=== PATIENT | male | born 1940 | race Caucasian/White ===

== ENCOUNTER → 2016-04-04 | Outpatient (CLI) | payer BC ==
[~2016-04-04] MED LIST: AMB10 PO; ASCO10003 PO; ASPI81TA28 PO; BUPRTAB51 PO; CHOL100010 PO; CLOP1TAB15 PO; FERR325T PO; FINA5TAB PO; FLUD0.1T10 PO; GABA-113 PO; INSPMPNVLG; MULT-506 PO; NITR0.4S UT; NXM/40 PO; RANI300T2 PO; SERT-234 PO; SILO4CAP PO; ZOLP5TAB6 PO
[2016-04-04 14:28] LABS: ALT/SGPT 19 U/L (12-78); BLOOD UREA NITROGEN 15 mg/dl (7-18); BUN/CREATININE RATIO 10.1 (10-20); CALCIUM 9.3 mg/dl (8.5-10.1); CARBON DIOXIDE 29 mmol/L (21-32); CHLORIDE 104 mmol/L (98-107); CHOLESTEROL 207 mg/dl (0-200); GLUCOSE 259 mg/dl (70-99); POTASSIUM 4.4 mmol/L (3.5-5.1); SODIUM 141 mmol/L (136-145)
[2016-04-04 14:31] LABS: ALB/GLOB RATIO 0.9 (0.9-2); ALKALINE PHOSPHATASE 112 U/L (45-117); AST/SGOT 11 U/L (15-37); CHOLESTEROL/HDL RATIO 4.8; HDL CHOLESTEROL 43 mg/dl; LDL CHOLESTEROL CALCULATED 142 mg/dl; TRIGLYCERIDES 109 mg/dl (0-150); VERY LOW DENSITY LIPOPROT CALC 22 mg/dl
[2016-04-05 06:17] LABS: ESTIMATED AVERAGE GLUCOSE 186 mg/dl; HA1C FLAG Normal (Normal)
== END | disposition home or self-care (01) ==
LOC: C.LAB1850 12:21
PROVIDERS: ATTEND Internal Medicine Endocrinology, Diabetes & Metabolism
DX: E78.00 Pure hypercholesterolemia, unspecified (principal); E11.65 Type 2 diabetes mellitus with hyperglycemia

== ENCOUNTER → 2016-06-25 | Outpatient (CLI) | payer BC ==
[~2016-06-25] MED LIST changes: +CEPH500C PO; +FERR1TAB13 PO; +FERR1TAB62 PO; -FERR325T PO; +GLGKIT SC; +PRMT25 PO; +SULF800T23 PO; +VTMD1000 PO; +ZNTT/150 PO; +ZOLP5TAB PO; +ZOLP6.252 PO
[2016-06-25 13:28] LABS: CHOLESTEROL/HDL RATIO 3.6; THYROID STIMULATING HORMONE 2.11 uIu/ml (0.300-4.500)
[2016-06-25 14:01] LABS: ESTIMATED AVERAGE GLUCOSE 192 mg/dl; HA1C FLAG Normal (Normal)
== END | disposition home or self-care (01) ==
LOC: C.LAB1850 10:13
PROVIDERS: ATTEND Internal Medicine Geriatric Medicine
DX: E11.22 Type 2 diabetes mellitus with diabetic chronic kidney disease (principal); E78.5 Hyperlipidemia, unspecified; N18.3 Chronic kidney disease, stage 3 (moderate)

== ENCOUNTER → 2016-07-31 | Outpatient (CLI) | payer BC ==
[2016-07-31 12:10] LABS: HEMATOCRIT 38.7 % (42-52); MEAN CELL VOLUME 95.3 fL (80-100); MEAN CORPUSCULAR HEMOGLOBIN 31.8 pg (25-34); MEAN CORPUSCULAR HGB CONC 33.3 g/dl (32-36); MEAN PLATELET VOLUME 10.3 fL (7.4-10.4); PLATELET COUNT 261 K/uL (130-400); RED BLOOD COUNT 4.06 M/uL (4.7-6.1); WHITE BLOOD COUNT 9.22 K/uL (4.8-10.8)
[2016-07-31 12:16] LABS: URINE APPEARANCE CLEAR (CLEAR); URINE BILIRUBIN NEG (NEG); URINE COLOR YELLOW; URINE NITRITE NEG (NEG); URINE SPECIFIC GRAVITY 1.018 (1.000-1.030); UROBILINOGEN NEG (NEG)
[2016-07-31 12:19] LABS: MANUAL MICROSCOPIC REQUIRED? NO; REVIEW REQ? NO
[2016-07-31 12:44] LABS: BLOOD UREA NITROGEN 12 mg/dl (7-18); CALCIUM 9.1 mg/dl (8.5-10.1); CARBON DIOXIDE 30 mmol/L (21-32); CHLORIDE 104 mmol/L (98-107); GLUCOSE 235 mg/dl (70-99); PHOSPHORUS 3.3 mg/dl (2.5-4.9); POTASSIUM 4.9 mmol/L (3.5-5.1); SODIUM 140 mmol/L (136-145)
[2016-07-31 12:59] LABS: URINE PROTIEN/CREAT RATIO 0.2 (0-0.2); URINE TOTAL PROTEIN 21.6 mg/dl (0-11.9)
== END | disposition home or self-care (01) ==
LOC: C.LAB1850 11:14
PROVIDERS: ATTEND Internal Medicine Nephrology
DX: N18.3 Chronic kidney disease, stage 3 (moderate) (principal); D64.9 Anemia, unspecified; N20.0 Calculus of kidney; E55.9 Vitamin D deficiency, unspecified

== ENCOUNTER 2016-12-11 10:13 | Observation (INO) | payer BC ==
[~2016-12-11] VITALS: Ht 180.3 cm; Wt 89.0 kg
[~2016-12-11 10:13] MED LIST changes: -CEPH500C PO; -FERR1TAB13 PO; -FERR1TAB62 PO; +FERR325T PO; -GLGKIT SC; -PRMT25 PO; -SULF800T23 PO; -VTMD1000 PO; -ZNTT/150 PO; -ZOLP5TAB PO; -ZOLP6.252 PO
[2016-12-11] MEDS ORDERED: GLGKIT (11:37)
[2016-12-11] MEDS ORDERED: SODIUM CHLORIDE 0.9% 1000ML 1,000 ML IV STA (11:38)
[2016-12-11 11:53] LABS: BASO % 0.2 %; BASO ABS # 0.03 K/uL (0-0.2); COMPLETE YES; EOS % 1.4 %; HEMATOCRIT 33.9 % (42-52); IG% 0.3 %; LYMPH % 7.9 %; LYMPH ABS # 1.19 K/uL (1.2-3.4); MEAN CELL VOLUME 93.6 fL (80-100); MEAN CORPUSCULAR HEMOGLOBIN 32.6 pg (25-34); MEAN CORPUSCULAR HGB CONC 34.8 g/dl (32-36); MEAN PLATELET VOLUME 10.1 fL (7.4-10.4); MONO % 6.5 %; NEUT % 83.7 %; PLATELET COUNT 244 K/uL (130-400); RED BLOOD COUNT 3.62 M/uL (4.7-6.1); WHITE BLOOD COUNT 15.09 K/uL (4.8-10.8)
--- NOTE | 2016-12-11 12:06 | DIAGNOSTIC IMAGING REPORT ---
CHEST ONE VIEW PORTABLE CLINICAL HISTORY: 76 years-old Male presenting with EVALUATE ALTERED MENTAL STATUS/WEAKNESS. TECHNIQUE: Portable upright AP view of the chest was obtained. COMPARISON: 07/11/2014. FINDINGS: Atherosclerosis of the aortic arch. Cardiac silhouette top normal in size. Vague bibasilar prominent interstitial lung markings. No new focal infiltrate. Biapical scarring again noted, left greater than right. No large effusion or pneumothorax. Degenerative changes of the thoracic spine. Upper abdomen normal. IMPRESSION: 1. Suggestion of mild cardiomegaly. No michael pulmonary edema. No focal infiltrate. Electronically signed by: Jaskaran Silva M.D. 12/11/2016 12:05 PM Dictated Date/Time: 12/11/2016 12:04 PM
[2016-12-11 12:28] LABS: ALT/SGPT 19 U/L (12-78); BLOOD UREA NITROGEN 21 mg/dl (7-18); BUN/CREATININE RATIO 13.1 (10-20); CALCIUM 8.8 mg/dl (8.5-10.1); CARBON DIOXIDE 25 mmol/L (21-32); CHLORIDE 105 mmol/L (98-107); GLUCOSE 383 mg/dl (70-99); MAGNESIUM 2.3 mg/dl (1.8-2.4); SODIUM 138 mmol/L (136-145)
[2016-12-11 12:31] LABS: ALKALINE PHOSPHATASE 106 U/L (45-117); AST/SGOT 14 U/L (15-37); THYROID STIMULATING HORMONE 0.639 uIu/ml (0.300-4.500)
[2016-12-11 12:50] LABS: BETA-HYDROXYBUTYRATE 1.25 mg/dL (0.2-2.81)
[2016-12-11 12:50] LABS: PROTHROMBIN TIME (PATIENT) 10.8 SECONDS (9.0-12.0)
[2016-12-11 13:57] LABS: MANUAL MICROSCOPIC REQUIRED? NO; URINE APPEARANCE CLEAR (CLEAR); URINE BILIRUBIN NEG (NEG); URINE COLOR YELLOW; URINE NITRITE NEG (NEG); URINE PH 5.5 (4.5-7.5); UROBILINOGEN NEG (NEG)
[2016-12-11 13:58] LABS: REVIEW REQ? NO
--- NOTE | 2016-12-11 14:01 | EMERGENCY ROOM VISIT NOTE ---
History Report prepared by Raymundo: Maye Sesay Under the Supervision of: Dr. Finesse Gonzalez D.O. First contact with patient: 11:00 Chief Complaint: WEAKNESS Stated Complaint: EXTREMELY TIRED History of Present Illness The patient is a 76 year old male who presents to the Emergency Room with complaints of persistent weakness over the past several weeks, that worsened over the past several days. The patient reports that he has had a decrease in energy, noting that he has to take frequent naps throughout the day. He reports a history of diabetes. The patient denies any fever, chest pain, or shortness of breath. Source of History: patient Onset: past several days Position: other (global) Quality: other (weakness) Timing: worsening, other (persistent) Associated Symptoms: No fevers, No chest pain, No SOB Review of Systems See HPI for pertinent positives & negatives. A total of 10 systems reviewed and were otherwise negative. Past Medical & Surgical Medical Problems: (1) Depression (2) Diab Edilia Wo Compl, Type Ii Or Unspec Type, Not Uncntrld (3) Esophageal Reflux (4) GERD (gastroesophageal reflux disease) (5) Heart disease (6) Hyperlipemia (7) Hyperlipidemia (8) Hypertension Nos (9) Insomnia (10) Lens Replacement Nec (11) Neuropathy (12) Transient ischemic attack (TIA) Surgical Problems: (1) History of heart artery stent Family History Diabetes mellitus Social History Smoking Status: Never Smoker Drug Use: none Marital Status: Housing Status: lives with family Occupation Status: employed Current/Historical Medications Scheduled Ascorbic Acid (Vitamin C), 1,000 MG PO HS Aspirin (Aspirin Ec), 81 MG PO HS Bupropion (Wellbutrin-Xl), 300 MG PO QAM Cholecalciferol (Vitamin D), 2,000 INTER.UNIT PO QAM Clopidogrel (Plavix), 75 MG PO QAM Esomeprazole Magnesium (Nexium), 40 MG PO QAM Ferrous Sulfate (Ferrous Sulfate), 1 TAB PO QAM Finasteride (Proscar), 5 MG PO HS Fludrocortisone Acetate (Florinef), 0.2 MG PO QAM Gabapentin (Neurontin), 300 MG PO BID Insulin Aspart (novoLOG INSULIN PUMP ), 1 EA N/A UD Multivitamin (Multivitamin), 1 TAB PO QAM Nitroglycerin (Nitrostat), 0.4 MG UT PRN Ranitidine (Zantac), 300 MG PO HS Sertraline (Zoloft), 200 MG PO QAM Silodosin (Rapaflo), 4 MG PO QAM Zolpidem Tartrate (Ambien *), 6.25 MG PO HS Scheduled PRN Zolpidem Tartrate (Zolpidem Tartrate), 1 TAB PO HS PRN for Sleep Miscellaneous Medications Glucagon (Glucagon Emergency Kit), 1 Allergies Coded Allergies: Horse Serum Proteins (Verified Allergy, Unknown, HAPPENED A CHILD, 01/17) Metoprolol (Verified Adverse Reaction, Intermediate, SEVERE HEADACHE, 01/17) Physical Exam Vital Signs Date Time Temp Pulse Resp B/P (MAP) Pulse Ox O2 Delivery O2 Flow Rate FiO2 12/11/16 13:41 68 17 139/67 95 12/11/16 13:13 66 12/11/16 12:48 68 12 95 12/11/16 11:48 70 19 96 12/11/16 11:43 72 12 96 12/11/16 11:13 75 13 96 12/11/16 11:05 96 Room Air 12/11/16 10:52 75 12/11/16 10:51 142/59 12/11/16 10:17 36.7 84 18 125/54 96 Room Air Physical Exam CONSTITUTIONAL/VITAL SIGNS: Reviewed / noted above. GENERAL: Non-toxic in appearance. INTEGUMENTARY: Warm, dry, and [place]. HEAD: Normocephalic. EYES: without scleral icterus or trauma. ENT/OROPHARYNX: dry mucous membranes. LYMPHADENOPATHY/NECK: Is supple without lymphadenopathy or meningismus. RESPIRATORY: Lungs clear and equal. CARDIOVASCULAR: Regular rate and rhythm. GI/ABDOMEN: Soft and nontender. No organomegaly or pulsatile mass. No rebound or guarding. Normal bowel sounds. EXTREMITIES: Warm and well perfused. BACK: No CVA tenderness. NEUROLOGICAL: Intact without focal deficits. PSYCHIATRIC: normal affect. MUSCULOSKELETAL: Normally developed with good muscle tone. Medical Decision & Procedures ER Provider Diagnostic Interpretation: X ray results and stated below per my interpretation and radiology interpretation. CHEST ONE VIEW PORTABLE CLINICAL HISTORY: 76 years-old Male presenting with EVALUATE ALTERED MENTAL STATUS/WEAKNESS. TECHNIQUE: Portable upright AP view of the chest was obtained. COMPARISON: 07/11/2014. FINDINGS: Atherosclerosis of the aortic arch. Cardiac silhouette top normal in size. Vague bibasilar prominent interstitial lung markings. No new focal infiltrate. Biapical scarring again noted, left greater than right. No large effusion or pneumothorax. Degenerative changes of the thoracic spine. Upper abdomen normal. IMPRESSION: 1. Suggestion of mild cardiomegaly. No michael pulmonary edema. No focal infiltrate. Electronically signed by: Jaskaran Silva M.D. 12/11/2016 12:05 PM Dictated Date/Time: 12/11/2016 12:04 PM Laboratory Results 12/11/16 11:00 Red Blood Count 3.62, Mean Corpuscular Volume 93.6, Mean Corpuscular Hemoglobin 32.6, Mean Corpuscular Hemoglobin Concent 34.8, Mean Platelet Volume 10.1, Neutrophils (%) (Auto) 83.7, Lymphocytes (%) (Auto) 7.9, Monocytes (%) (Auto) 6.5, Eosinophils (%) (Auto) 1.4, Basophils (%) (Auto) 0.2, Neutrophils # (Auto) 12.63, Lymphocytes # (Auto) 1.19, Monocytes # (Auto) 0.98, Eosinophils # (Auto) 0.21, Basophils # (Auto) 0.03 12/11/16 11:00 Test 12/11/16 11:00 12/11/16 12:27 12/11/16 13:39 White Blood Count 15.09 K/uL (4.8-10.8) Red Blood Count 3.62 M/uL (4.7-6.1) Hemoglobin 11.8 g/dL (14.0-18.0) Hematocrit 33.9 % (42-52) Mean Corpuscular Volume 93.6 fL (80-100) Mean Corpuscular Hemoglobin 32.6 pg (25-34) Mean Corpuscular Hemoglobin Concent 34.8 g/dl (32-36) Platelet Count 244 K/uL (130-400) Mean Platelet Volume 10.1 fL (7.4-10.4) Neutrophils (%) (Auto) 83.7 % Lymphocytes (%) (Auto) 7.9 % Monocytes (%) (Auto) 6.5 % Eosinophils (%) (Auto) 1.4 % Basophils (%) (Auto) 0.2 % Neutrophils # (Auto) 12.63 K/uL (1.4-6.5) Lymphocytes # (Auto) 1.19 K/uL (1.2-3.4) Monocytes # (Auto) 0.98 K/uL (0.11-0.59) Eosinophils # (Auto) 0.21 K/uL (0-0.5) Basophils # (Auto) 0.03 K/uL (0-0.2) RDW Standard Deviation 44.9 fL (36.4-46.3) RDW Coefficient of Variation 13.0 % (11.5-14.5) Immature Granulocyte % (Auto) 0.3 % Immature Granulocyte # (Auto) 0.05 K/uL (0.00-0.02) Anion Gap 7.0 mmol/L (3-11) Est Creatinine Clear Calc Drug Dose 41.2 ml/min Estimated GFR () 47.5 Estimated GFR (Non- 40.9 BUN/Creatinine Ratio 13.1 (10-20) Calcium Level 8.8 mg/dl (8.5-10.1) Magnesium Level 2.3 mg/dl (1.8-2.4) Total Bilirubin 0.4 mg/dl (0.2-1) Direct Bilirubin 0.1 mg/dl (0-0.2) Aspartate Amino Transf (AST/SGOT) 14 U/L (15-37) Alanine Aminotransferase (ALT/SGPT) 19 U/L (12-78) Alkaline Phosphatase 106 U/L (45-117) Total Creatine Kinase 54 U/L (39-308) Creatine Kinase MB 1.1 ng/ml (0.5-3.6) Creatine Kinase MB Ratio 2.0 (0-3.0) Troponin I < 0.015 ng/ml (0-0.045) Total Protein 6.7 gm/dl (6.4-8.2) Albumin 3.2 gm/dl (3.4-5.0) Beta-Hydroxybutyric Acid 1.25 mg/dL (0.2-2.81) Thyroid Stimulating Hormone (TSH) 0.639 uIu/ml (0.300-4.500) Prothrombin Time 10.8 SECONDS (9.0-12.0) Prothromb Time International Ratio 1.0 (0.9-1.1) Activated Partial Thromboplast Time 27.0 SECONDS (21.0-31.0) Partial Thromboplastin Ratio 1.0 Urine Color YELLOW Urine Appearance CLEAR (CLEAR) Urine pH 5.5 (4.5-7.5) Urine Specific [place] 1.020 (1.000-1.030) Urine Protein NEG (NEG) Urine Glucose (UA) 3+ (NEG) Urine Ketones NEG (NEG) Urine Occult Blood NEG (NEG) Urine Nitrite NEG (NEG) Urine Bilirubin NEG (NEG) Urine Urobilinogen NEG (NEG) Urine Leukocyte Esterase NEG (NEG) Laboratory results as stated above per my review. Medications Administered Medications (Trade) Dose Ordered Sig/Henrry Route Start Time Stop Time Status Last Admin Dose Admin Sodium Chloride 1,000 ml @ 250 mls/hr Q4H STAT IV 12/11/16 11:38 12/11/16 15:37 12/11/16 12:05 250 MLS/HR ECG Indication: weakness Rate (beats per minute): 74 Rhythm: normal sinus Findings: no acute ischemic change, no ectopy ED Course 1102: Previous medical records were reviewed. The patient was evaluated in room B9. A complete history and physical examination was performed by the medical student. 1138: Previous medical records were reviewed. The patient was evaluated in room B9. A complete history and physical examination was performed. Ordered Sodium Chloride 1000 ml @ 250 mls/hr IV. 1346: I discussed the patients case with [facility] [place] [facility] He is going to evaluate the patient for further treatment. 1351: I reevaluated the patient and he is resting comfortably. I discussed the exam findings with him and I discussed the treatment plan. He verbalized complete understanding and agreement. He is ready to go home. Medical Decision Differentials include: Acute coronary syndrome, myocardial infarction, CVA, TIA , anemia, infection, pneumonia, UTI, pyelonephritis, poor nutrition, dehydration , electrolyte disturbance, and hypoglycemia. This is a 76-year-old male who presents to the ED with a chief complaint of generalized weakness. He has been weak for the past several weeks but his symptoms worsened over the past few days according to the . He's been taking frequent naps. He becomes short of breath with exertion and when doing activities like gardening outside, the states that he will lie on the ground after doing minimal exertion and seems to be breathing heavily. The patient denies having any chest pains, headaches, nausea or vomiting. He has been eating and drinking okay. The patient's EKG shows a normal sinus rhythm. White blood cell count was 15,000. Hemoglobin is 11.8. Chest x-ray was negative for acute disease. BUN is 21 and creatinine is 1.6. Glucose 383. Troponin was negative, TSH was normal, urine did not show obvious infection. The patient did use his own insulin pump to cover his elevated glucose. Because of his Sinemet worsening of symptoms with regards to severe weakness and dyspnea with exertion, I spoke with the hospitalist who will see the patient for further inpatient evaluation and care. Medication Reconcilliation Current Medication List: was personally reviewed by me Consults Time Called: 1345 Consulting Physician: OLY Teran Returned Call: 134 I discussed the patients case with OLY Teran. He is going to evaluate the patient for further treatment. Impression Primary Impression: Dyspnea on exertion Additional Impressions: Weakness Leukocytosis Hyperglycemia Scribe Attestation The scribe's documentation has been prepared under my direction and personally reviewed by me in its entirety. I confirm that the note above accurately reflects all work, treatment, procedures, and medical decision making performed by me. Departure Information Dispostion Being Evaluated By Hospitalist Referrals Michael Dorantes M.D. (PCP) Problem Qualifiers
[2016-12-11 14:16] LABS: ZZUR CULT IF INDIC CLEAN CATCH NO
[2016-12-11] MEDS ORDERED: DEXTROSE 50% 50 ML SYR IV PRN (14:45)
[2016-12-11] MEDS ORDERED: GLUCOSE 10 TABS/TUBE PO PRN (14:45)
[2016-12-11] MEDS ORDERED: ONDANSETRON INJ 2 MG/ML 2 ML VIAL IV PRN (14:45)
[2016-12-11] MEDS ORDERED: NovoLOG INSULIN PUMP SCH (14:45)
[2016-12-11] MEDS ORDERED: GLUCOSE 40% GEL 15 GM TUBE PO PRN (14:45)
[2016-12-11] MEDS ORDERED: NITROGLYCERIN 0.4 MG SL PER TAB CHARGE SL PRN (14:45)
[2016-12-11] MEDS ORDERED: GLUCAGON FOR INJ 1 MG VIAL SQ PRN (14:45)
[2016-12-11] MEDS ORDERED: NITROGLYCERIN 0.4 MG SL PER TAB CHARGE UT SCH (14:45)
[2016-12-11] MEDS ORDERED: ACETAMINOPHEN 325 MG TAB PO PRN (14:45)
--- NOTE | 2016-12-11 15:06 | History and Physical ---
History & Physical Date & Time of Service: Dec 11, 2016 at 14:53 Chief Complaint: Extremely Tired Primary Care Physician: Michael Dorantes M.D. History of Present Illness Source: patient, hospital records The patient is a 76-year-old male who presents to the emergency department with persistent generalized weakness over the past several weeks with worsening over the past few days. His reports that he's been taking frequent naps throughout the day, and becomes short of breath with little activity. Past Medical/Surgical History Medical Problems: (1) Depression Status: Chronic (2) Diab Edilia Wo Compl, Type Ii Or Unspec Type, Not Uncntrld Status: Chronic (3) Esophageal Reflux Status: Chronic (4) GERD (gastroesophageal reflux disease) Status: Chronic (5) Heart disease Status: Chronic (6) Hyperlipemia Status: Chronic (7) Hyperlipidemia Status: Chronic (8) Hypertension Nos Status: Chronic (9) Insomnia Status: Chronic (10) Lens Replacement Nec Status: Resolved (11) Neuropathy Status: Chronic (12) Transient ischemic attack (TIA) Status: Resolved Surgical Problems: (1) History of heart artery stent Status: Chronic Family History Diabetes mellitus Social History Smoking Status: Never Smoker Smokeless Tobacco Use: No Alcohol Use: none Drug Use: none Marital Status: Housing status: lives with family Occupational Status: employed Immunizations History of Influenza Vaccine: Yes Influenza Vaccine Date: Dec 15, 2012 History of Tetanus Vaccine?: Yes History of Pneumococcal: Yes Pneumococcal Date: Nov 20, 2011 History of Hepatitis B Vaccine: No Multi-Drug Resistant Organisms History of MDRO: No Allergies Coded Allergies: Horse Serum Proteins (Verified Allergy, Unknown, HAPPENED A CHILD, 01/17) Metoprolol (Verified Adverse Reaction, Intermediate, SEVERE HEADACHE, 01/17) Home Medications Scheduled Ascorbic Acid (Vitamin C), 1,000 MG PO HS Aspirin (Aspirin Ec), 81 MG PO HS Bupropion (Wellbutrin-Xl), 300 MG PO QAM Cholecalciferol (Vitamin D), 2,000 INTER.UNIT PO QAM Clopidogrel (Plavix), 75 MG PO QAM Esomeprazole Magnesium (Nexium), 40 MG PO QAM Ferrous Sulfate (Ferrous Sulfate), 1 TAB PO QAM Finasteride (Proscar), 5 MG PO HS Fludrocortisone Acetate (Florinef), 0.2 MG PO QAM Gabapentin (Neurontin), 300 MG PO BID Insulin Aspart (novoLOG INSULIN PUMP ), 1 EA N/A UD Multivitamin (Multivitamin), 1 TAB PO QAM Nitroglycerin (Nitrostat), 0.4 MG UT PRN Ranitidine (Zantac), 300 MG PO HS Sertraline (Zoloft), 200 MG PO QAM Silodosin (Rapaflo), 4 MG PO QAM Zolpidem Tartrate (Ambien *), 6.25 MG PO HS Scheduled PRN Zolpidem Tartrate (Zolpidem Tartrate), 1 TAB PO HS PRN for Sleep Miscellaneous Medications Glucagon (Glucagon Emergency Kit), 1 Review of Systems The patient denies chest pain, palpitations, cough, lower extremity swelling, vision change, hearing change, sore throat, fevers, chills, sweats, weight change, nausea, vomiting, diarrhea or constipation, abdominal pain, pelvic pain, blood in urine or stool, dysuria, urinary frequency or urgency, headache, memory loss, rash, abnormal bruising or bleeding, imbalance, focal weakness, numbness or tingling in arms or legs, generalized arthralgias or myalgias, back or neck pain, or night sweats. The review of systems is otherwise negative other than for that already noted above, and at least 10 systems have been reviewed. Physical Exam Vital Signs Date Time Temp Pulse Resp B/P (MAP) Pulse Ox O2 Delivery O2 Flow Rate FiO2 12/11/16 13:41 68 17 139/67 95 12/11/16 13:13 66 12/11/16 12:48 68 12 95 12/11/16 11:48 70 19 96 12/11/16 11:43 72 12 96 12/11/16 11:13 75 13 96 12/11/16 11:05 96 Room Air 12/11/16 10:52 75 12/11/16 10:51 142/59 12/11/16 10: 36.7 84 18 125/54 96 Room Air The patient is awake, well-developed and adequately nourished, alert and oriented 3, normocephalic and atraumatic, lying in bed and in no acute distress. HEENT--PERRL, EOMI, mucous membranes and oropharynx dry. Neck--supple, no JVD or bruits, thyroid normal, trachea midline, no adenopathy. Heart--normal S1 and S2, no extra beats, no murmurs, rubs or gallops. Lungs--clear bilaterally with good air movement, no respiratory distress, no accessory muscle use. Abdomen--normal bowel sounds and soft, nontender and nondistended, no hernias or masses, no organomegaly. Extremities--no cyanosis, clubbing or edema. There are good distal pulses b/l. Dermatologic--normal skin turgor, normal color, warm and dry, no abnormal lymph nodes, no rash. Neurologic--cranial nerves II through XII grossly intact, motor and sensory examination normal. Rheumatologic--normal range of motion, nontender, muscles and joints. Psychiatric--normal affect. Diagnostics Laboratory Results Results Past 24 Hours Test 12/11/16 11:00 12/11/16 11:07 12/11/16 12:27 12/11/16 13:39 Range/Units White Blood Count 15.09 4.8-10.8 K/uL Red Blood Count 3.62 4.7-6.1 M/uL Hemoglobin 11.8 14.0-18.0 g/dL Hematocrit 33.9 42-52 % Mean Corpuscular Volume 93.6 80-100 fL Mean Corpuscular Hemoglobin 32.6 25-34 pg Mean Corpuscular Hemoglobin Concent 34.8 32-36 g/dl Platelet Count 244 130-400 K/uL Mean Platelet Volume 10.1 7.4-10.4 fL Neutrophils (%) (Auto) 83.7 % Lymphocytes (%) (Auto) 7.9 % Monocytes (%) (Auto) 6.5 % Eosinophils (%) (Auto) 1.4 % Basophils (%) (Auto) 0.2 % Neutrophils # (Auto) 12.63 1.4-6.5 K/uL Lymphocytes # (Auto) 1.19 1.2-3.4 K/uL Monocytes # (Auto) 0.98 0.11-0.59 K/uL Eosinophils # (Auto) 0.21 0-0.5 K/uL Basophils # (Auto) 0.03 0-0.2 K/uL RDW Standard Deviation 44.9 36.4-46.3 fL RDW Coefficient of Variation 13.0 11.5-14.5 % Immature Granulocyte % (Auto) 0.3 % Immature Granulocyte # (Auto) 0.05 0.00-0.02 K/uL Sodium Level 138 136-145 mmol/L Potassium Level 4.0 3.5-5.1 mmol/L Chloride Level 105 98-107 mmol/L Carbon Dioxide Level 25 21-32 mmol/L Anion Gap 7.0 3-11 mmol/L Blood Urea Nitrogen 21 7-18 mg/dl Creatinine 1.60 0.60-1.40 mg/dl Est Creatinine Clear Calc Drug Dose 41.2 ml/min Estimated GFR () 47.5 Estimated GFR (Non- 40.9 BUN/Creatinine Ratio 13.1 10-20 Random Glucose 383 70-99 mg/dl Calcium Level 8.8 8.5-10.1 mg/dl Magnesium Level 2.3 1.8-2.4 mg/dl Total Bilirubin 0.4 0.2-1 mg/dl Direct Bilirubin 0.1 0-0.2 mg/dl Aspartate Amino Transf (AST/SGOT) 14 15-37 U/L Alanine Aminotransferase (ALT/SGPT) 19 12-78 U/L Alkaline Phosphatase 106 45-117 U/L Total Creatine Kinase 54 39-308 U/L Creatine Kinase MB 1.1 0.5-3.6 ng/ml Creatine Kinase MB Ratio 2.0 0-3.0 Troponin I < 0.015 0-0.045 ng/ml Total Protein 6.7 6.4-8.2 gm/dl Albumin 3.2 3.4-5.0 gm/dl Beta-Hydroxybutyric Acid 1.25 0.2-2.81 mg/dL Thyroid Stimulating Hormone (TSH) 0.639 0.300-4.500 uIu/ml Bedside Glucose 312 70-99 mg/dl Prothrombin Time 10.8 9.0-12.0 SECONDS Prothromb Time International Ratio 1.0 0.9-1.1 Activated Partial Thromboplast Time 27.0 21.0-31.0 SECONDS Partial Thromboplastin Ratio 1.0 Urine Color YELLOW Urine Appearance CLEAR CLEAR Urine pH 5.5 4.5-7.5 Urine Specific [place] 1.020 1.000-1.030 Urine Protein NEG NEG Urine Glucose (UA) 3+ NEG Urine Ketones NEG NEG Urine Occult Blood NEG NEG Urine Nitrite NEG NEG Urine Bilirubin NEG NEG Urine Urobilinogen NEG NEG Urine Leukocyte Esterase NEG NEG Diagnostic Radiology Patient Name: LIDIA HAYS Isela Unit Number: [id number] Dictated: 12/11/161203 Transcribed: 12/11/161203 PBS Printed Date/Time: [~ rep prt dt]/[~ rep prt tm] [~ rep ct labl] - [~ rep ct ivnm] [facility] [place] [place] [address] Dictated: 12/11/161203 Transcribed: 12/11/161203 PBS Printed Date/Time: [~ rep prt dt]/[~ rep prt tm] [~ rep ct labl] - [~ rep ct ivnm] [~ rep ct add3]] CHEST ONE VIEW PORTABLE CLINICAL HISTORY: 76 years-old Male presenting with EVALUATE ALTERED MENTAL STATUS/WEAKNESS. TECHNIQUE: Portable upright AP view of the chest was obtained. COMPARISON: 07/11/2014. FINDINGS: Atherosclerosis of the aortic arch. Cardiac silhouette top normal in size. Vague bibasilar prominent interstitial lung markings. No new focal infiltrate. Biapical scarring again noted, left greater than right. No large effusion or pneumothorax. Degenerative changes of the thoracic spine. Upper abdomen normal. IMPRESSION: 1. Suggestion of mild cardiomegaly. No michael pulmonary edema. No focal infiltrate. Electronically signed by: Jaskaran Silva M.D. 12/11/2016 12:05 PM Dictated Date/Time: 12/11/2016 12:04 PM The status of this report is Signed. Draft = Not yet reviewed or approved by Radiologist. Signed = Reviewed and approved by Radiologist. <AttendingPhy></AttendingPhy> <FamilyPhy>Michael Dorantes M.D.</FamilyPhy> < PrimaryPhy>Michael Dorantes M.D.</PrimaryPhy> <UnitNumber>[id number]</UnitNumber > <VisitNumber>[id number]</VisitNumber> <PatientName>SAÚLLIDIA</ PatientName> <DateOfBirth>1940</DateOfBirth> <Location>C.ED[facility]</Location> < ServiceDate>12/11/16</ServiceDate> <MNE>ESINDI</MNE> <OrderingPhy>Finesse Gonzalez D.O.</OrderingPhy> <OrderingPhyMNE>f rep ord dr brennan</OrderingPhyMNE> < DictatingPhyMNE>f rep dict dr brennan</DictatingPhyMNE> <CCListMNE>f rep ct mne</ CCListMNE> <AdmittingPhyMNE>f pt admit dr brennan</AdmittingPhyMNE> <AttendingPhyMNE >f pt attend dr brennan</AttendingPhyMNE> <ConsultingPhyMNE>f pt consult dr brennan</ConsultingPhyMNE> <FamilyPhyMNE>f pt fam dr brennan</FamilyPhyMNE> <OtherPhyMNE>f pt other dr brennan</OtherPhyMNE> < PrimaryPhyMNE>f pt prim care dr brennan</PrimaryPhyMNE> <ReferringPhyMNE>f pt referring dr brennan</ReferringPhyMNE> EKG EKG shows normal sinus rhythm at 74 bpm, nonspecific T-wave changes, no change compared to 05/26/2014 Impression Assessment and Plan Dyspnea on exertion/generalized fatigue/orthostasis-- The patient will be admitted to telemetry for serial cardiac enzymes, cardiac rhythm monitoring and a 2-D echocardiogram with Dopplers. Normal saline at 75 ML's per hour. Aspirin 81 mg by mouth daily, clopidogrel 75 mg by mouth daily. Follow urine cultures. Orthostatic hypotension-- Continue Florinef 0.2 mg by mouth every morning. Add midodrine 5 mg by mouth 3 times a day. Diabetes mellitus-- Continue to use his own insulin pump and determine his own coverage. Of note, his blood sugars have been higher than usual, suggestive of some type of internalized stress on his system. GERD--change Nexium to pantoprazole, and ranitidine 3 mg by mouth at bedtime. Depression-- Continue Wellbutrin XL, gabapentin, sertraline and zolpidem tartrate. BPH continue Rapaflo and Proscar. Level of Care Telemetry Advanced Directives Existing Advance Directive: No Existing Living Will: No Existing Power of [place] Paraprofessional: No Resuscitation Status FULL RESUSCITATION VTE Prophylaxis VTE Risk Assessment Done? Y/N: Yes Risk Level: Moderate Given or contraindicated: SCD's Social Service Consult None Apply
[2016-12-11] MEDS ORDERED: INSULIN ASPART 100 UNITS/ML 3 ML PEN SC SCH (16:00)
[2016-12-11] MEDS ORDERED: IV FLUIDS COMPLETED PRN (16:15)
[2016-12-11 16:45] VITALS: BP 150/73; PULSE 60; TEMP 36.7; O2SAT 99; BMI 27.7
[2016-12-11 16:53] LABS: INFLUENZA A PCR Neg for Influ A (NEG); INFLUENZA B PCR Neg for Influ B (NEG)
[2016-12-11 16:58] VITALS: BP 150/73; PULSE 60; TEMP 37.2; O2SAT 99
--- NOTE | 2016-12-11 17:00 | ECHOCARDIOGRAM REPORT ---
*NOTICE TO RECEIVING [employer]ENCY This information is strictly Confidential and protected under [place] law. [place] law prohibits you from making any further disclosure of this information unless further disclosure is expressly permitted by the written consent of the person to whom it pertains or is authorized by law. A general authorization for the release of medical or other information is not sufficient for this purpose. Hospital accepts no responsibility if the information is made available to any other person, INCLUDING THE PATIENT. Interpretation Summary * Name: LIDIA HAYS Study Date: 12/11/2016 03:29 PM BP: 132/74 mmHg * Patient Location: C.EDB HR: 67 * : 1940 (M/d/yyyy) Gender: Male Height: 71 in * Age: 76 yrs Ethnicity: CA Weight: 198 lb * Ordering Physician: Abad Bill * Referring Physician: Self, Referred * Performed By: Moriah Simmons RCS * * Reason For Study: JACKSON * BSA: 2.1 m2 * -- Conclusions -- * Left ventricular systolic function is mildly reduced. * Grade I diastolic dysfunction, (abnormal relaxation pattern). * There is mild mitral regurgitation. * Right ventricular systolic pressure is elevated at 30-40mmHg. * When compared directly to a study from May 2011, there does appear to be some slight decrease in the LV systolic function. Procedure Details * A complete two-dimensional transthoracic echocardiogram was performed (2D, M-mode, Doppler and color flow Doppler). Left Ventricle * The left ventricle is grossly normal size. * Left ventricular systolic function is mildly reduced. * Ejection Fraction = 45-50%. * Grade I diastolic dysfunction, (abnormal relaxation pattern). * There are regional wall motion abnormalities as specified. * There is mild hypokinesis involving the inferior and posterior adler. Right Ventricle * The right ventricle is grossly normal size. * The right ventricular systolic function is normal. Atria * The left atrial size is normal. * Right atrial size is normal. Mitral Valve * The mitral valve anatomy is normal. * There is mild mitral regurgitation. Tricuspid Valve * The tricuspid valve is not well visualized, but is grossly normal. * There is mild tricuspid regurgitation. * Right ventricular systolic pressure is elevated at 30-40mmHg. Aortic Valve * The aortic valve is normal in structure and function. * No hemodynamically significant valvular aortic stenosis. * Trace aortic regurgitation. Great Vessels * The aortic root is normal size. Pericardium/Pleural * There is no pericardial effusion. MMode 2D Measurements and Calculations Ao root diam 2.8 cm Ao root area 6.2 cm\S\2 ACS 1.9 cm LA dimension 2.9 cm LA/Ao 1.0 LVAd ap4 34.8 cm\S\2 LVLd ap4 8.1 cm EDV(MOD-sp4) 120.7 ml EDV(sp4-el) 126.9 ml LVAs ap4 20.2 cm\S\2 LVLs ap4 6.7 cm ESV(MOD-sp4) 50.2 ml ESV(sp4-el) 51.9 ml EF(MOD-sp4) 58.4 % EF(sp4-el) 59.1 % LVAd ap2 38.1 cm\S\2 LVLd ap2 8.4 cm EDV(MOD-sp2) 140.7 ml EDV(sp2-el) 145.9 ml LVAs ap2 20.7 cm\S\2 LVLs ap2 6.4 cm ESV(MOD-sp2) 56.5 ml ESV(sp2-el) 56.5 ml EF(MOD-sp2) 59.8 % EF(sp2-el) 61.3 % LVLd %diff 4.4 % EDV(MOD-bp) 130.0 ml LVLs %diff -3.67 % ESV(MOD-bp) 54.5 ml EF(MOD-bp) 58.1 % SV(MOD-sp4) 70.5 ml SI(MOD-sp4) 33.6 ml/m\S\2 SV(MOD-sp2) 84.2 ml SI(MOD-sp2) 40.1 ml/m\S\2 SV(MOD-bp) 75.5 ml SI(MOD-bp) 35.9 ml/m\S\2 SV(sp4-el) 75.0 ml SI(sp4-el) 35.7 ml/m\S\2 SV(sp2-el) 89.4 ml SI(sp2-el) 42.6 ml/m\S\2 Doppler Measurements and Calculations MV E max arron 58.3 cm/sec MV A max arron 59.5 cm/sec MV E/A 0.98 MV P1/2t max arron 106.1 cm/sec MV P1/2t 86.1 msec MVA(P1/2t) 2.6 cm\S\2 MV dec slope 360.9 cm/sec\S\2 MV dec time 0.18 sec Ao V2 max 138.5 cm/sec Ao max PG 7.7 mmHg Ao max PG (full) 5.1 mmHg AI max arron 458.8 cm/sec AI max PG 84.2 mmHg AI dec slope 160.8 cm/sec\S\2 AI P1/2t 835.8 msec LV V1 max PG 2.5 mmHg LV V1 max 79.8 cm/sec MR max arron 578.3 cm/sec MR max PG 133.9 mmHg PA V2 max 98.4 cm/sec PA max PG 3.9 mmHg TR max arron 257.5 cm/sec
[2016-12-11] MEDS ORDERED: INSULIN ASPART 100 UNITS/ML VIAL SC PRN (17:30)
[2016-12-11] MEDS: MIDODRINE 2.5 MG TAB PO SCH (18:21)
[2016-12-11] MEDS: SODIUM CHLORIDE 0.9% 1000ML 1,000 ML IV SCH (18:22)
[2016-12-11 19:18] VITALS: BP 146/68; PULSE 82; TEMP 36.8; O2SAT 99
[2016-12-11] MEDS ORDERED: INFLUENZA ADMINISTRATION CHARGE ONE (19:45)
[2016-12-11] MEDS ORDERED: INFLUENZA VACCINE HIGH DOSE 65+ 0.5 ML SYR IM. ONE (19:45)
[2016-12-11 20:00] VITALS: O2SAT 99
[2016-12-11] MEDS: RANITIDINE HCL 150 MG TAB PO SCH (20:30)
[2016-12-11] MEDS: ASPIRIN 81 MG ECTAB PO SCH (20:31)
[2016-12-11] MEDS: GABAPENTIN 300 MG CAP PO SCH (20:31)
[2016-12-11] MEDS: FINASTERIDE 5 MG TAB PO SCH (20:31)
[2016-12-11] MEDS: ASCORBIC ACID 500 MG TAB PO SCH (20:31)
[2016-12-11] MEDS: NovoLOG INSULIN PUMP SCH (20:37)
[2016-12-11] MEDS: ZOLPIDEM TARTRATE 5 MG TAB PO PRN (22:35)
[2016-12-11 23:15] LABS: CKMB/CK RATIO 2.1 (0-3.0)
[2016-12-11 23:32] VITALS: BP 161/68; PULSE 70; TEMP 36.6; O2SAT 97
[2016-12-11 23:59] VITALS: O2SAT 97
[2016-12-12] VITALS (10 sets, daily range): BP systolic 116–154; BP diastolic 66–83; PULSE 60–75; TEMP 36.4–36.8; O2SAT 94–98; Ht 180.3 cm; Wt 89.0 kg
[2016-12-12] MEDS: SODIUM CHLORIDE 0.9% 1000ML 1,000 ML IV SCH ×2 (04:29→14:17)
[2016-12-12] MEDS: NovoLOG INSULIN PUMP SCH ×4 (07:00→20:27)
[2016-12-12 07:30] LABS: BASO % 0.5 %; BASO ABS # 0.04 K/uL (0-0.2); COMPLETE YES; EOS % 5.8 %; HEMATOCRIT 35.5 % (42-52); IG% 0.3 %; LYMPH % 18.3 %; LYMPH ABS # 1.46 K/uL (1.2-3.4); MEAN CELL VOLUME 93.7 fL (80-100); MEAN CORPUSCULAR HEMOGLOBIN 31.7 pg (25-34); MEAN CORPUSCULAR HGB CONC 33.8 g/dl (32-36); MEAN PLATELET VOLUME 9.8 fL (7.4-10.4); MONO % 12.4 %; NEUT % 62.7 %; PLATELET COUNT 218 K/uL (130-400); RED BLOOD COUNT 3.79 M/uL (4.7-6.1)
[2016-12-12 07:42] LABS: INR 1.1 (0.9-1.1); PARTIAL THROMBOPLASTIN RATIO 1.2; PROTHROMBIN TIME (PATIENT) 11.3 SECONDS (9.0-12.0)
[2016-12-12] MEDS: PANTOprazole SOD 40 MG TAB PO SCH (07:42)
[2016-12-12] MEDS: CLOPIDOGREL BISULFATE 75 MG TAB PO SCH (07:42)
[2016-12-12] MEDS: FLUDROCORTISONE ACETATE 0.1 MG TAB PO SCH (07:42)
[2016-12-12] MEDS: FERROUS SULFATE 325 MG TAB PO SCH (07:42)
[2016-12-12] MEDS: MULTIVITAMIN TAB PO SCH (07:43)
[2016-12-12] MEDS: GABAPENTIN 300 MG CAP PO SCH ×2 (07:43→19:57)
[2016-12-12] MEDS: SERTRALINE HCL 100 MG TAB PO SCH (07:43)
[2016-12-12] MEDS: BuPROPion XL 300 MG TABCR PO SCH (07:43)
[2016-12-12] MEDS: CHOLECALCIFEROL 1000 INTER.UNIT TAB PO SCH (07:43)
[2016-12-12] MEDS: MIDODRINE 2.5 MG TAB PO SCH ×3 (07:43→17:29)
[2016-12-12 07:58] LABS: BLOOD UREA NITROGEN 18 mg/dl (7-18); BUN/CREATININE RATIO 13.7 (10-20); CALCIUM 9.1 mg/dl (8.5-10.1); CARBON DIOXIDE 27 mmol/L (21-32); CHLORIDE 110 mmol/L (98-107); GLUCOSE 147 mg/dl (70-99); MAGNESIUM 2.3 mg/dl (1.8-2.4); POTASSIUM 3.9 mmol/L (3.5-5.1); SODIUM 143 mmol/L (136-145)
[2016-12-12 08:03] LABS: CKMB/CK RATIO 2.3 (0-3.0)
[2016-12-12] MEDS ORDERED: SILODOSIN 4 MG PO SCH (09:00)
--- NOTE | 2016-12-12 10:29 | Hospitalist Progress Note ---
Hospitalist Progress Note Date of Service Dec 12, 2016. Subjective Pt evaluation today including: conversation w/ patient, physical exam, chart review, lab review, review of studies Pain: None PO Intake: Good Voiding: no voiding problems The patient was seen and examined this morning. Pt reports doing better than yesterday. He has no acute complaints. His dizziness is improved. He reports main issue is that he becomes progressively short of breath with exertion, but that this has been going on for many months. He has attributed this to low blood pressure in the past. Iron supplementation was started about 1 year ago by his PCP. He denies any chest pain, shortness of breath, abdominal pain, n/v/ d/c, lightheadedness, fever, sweats or chills. ROS: 6 point ROS reviewed and otherwise negative. Objective Vital Signs Date Time Temp Pulse Resp B/P (MAP) Pulse Ox O2 Delivery O2 Flow Rate FiO2 12/12/16 08:00 Room Air 12/12/16 07:34 36.5 60 18 142/81 (101) 96 Room Air 12/12/16 04:00 97 CPAP 12/12/16 03:32 36.8 64 18 116/66 (83) 97 CPAP 12/11/16 23:59 97 Room Air 12/11/16 23:32 36.6 70 16 161/68 (99) 97 Room Air 12/11/16 20:00 99 Room Air 12/11/16 19:18 36.8 82 18 146/68 (94) 99 12/11/16 16:58 37.2 60 18 150/73 (98) 99 12/11/16 16:45 36.7 60 18 150/73 99 Room Air 12/11/16 15:02 72 18 132/74 98 Room Air 12/11/16 13:41 68 17 139/67 95 12/11/16 13:13 66 12/11/16 12:48 68 12 95 12/11/16 11:48 70 19 96 12/11/16 11:43 72 12 96 12/11/16 11:13 75 13 96 12/11/16 11:05 96 Room Air 12/11/16 10:52 75 12/11/16 10:51 142/59 Physical Exam General Appearance: WD/WN, no apparent distress, + pertinent finding (appears pale) Eyes: PERRL, EOMI ENT: hearing grossly normal, pharynx normal, + pertinent finding (MMM) Neck: supple, no JVD Respiratory/Chest: lungs clear, no respiratory distress, no accessory muscle use Cardiovascular: no edema, no JVD, no murmur, + pertinent finding (few extra beats) Abdomen: normal bowel sounds, non tender, soft Extremities: non-tender, no pedal edema, no calf tenderness Neurologic/Psychiatric: alert, normal mood/affect, oriented x 3 Skin: normal color, warm/dry Laboratory Results Last 24 Hours Test 12/11/16 11:00 12/11/16 11:07 12/11/16 12:27 12/11/16 13:39 White Blood Count 15.09 K/uL Red Blood Count 3.62 M/uL Hemoglobin 11.8 g/dL Hematocrit 33.9 % Mean Corpuscular Volume 93.6 fL Mean Corpuscular Hemoglobin 32.6 pg Mean Corpuscular Hemoglobin Concent 34.8 g/dl Platelet Count 244 K/uL Mean Platelet Volume 10.1 fL Neutrophils (%) (Auto) 83.7 % Lymphocytes (%) (Auto) 7.9 % Monocytes (%) (Auto) 6.5 % Eosinophils (%) (Auto) 1.4 % Basophils (%) (Auto) 0.2 % Neutrophils # (Auto) 12.63 K/uL Lymphocytes # (Auto) 1.19 K/uL Monocytes # (Auto) 0.98 K/uL Eosinophils # (Auto) 0.21 K/uL Basophils # (Auto) 0.03 K/uL RDW Standard Deviation 44.9 fL RDW Coefficient of Variation 13.0 % Immature Granulocyte % (Auto) 0.3 % Immature Granulocyte # (Auto) 0.05 K/uL Sodium Level 138 mmol/L Potassium Level 4.0 mmol/L Chloride Level 105 mmol/L Carbon Dioxide Level 25 mmol/L Anion Gap 7.0 mmol/L Blood Urea Nitrogen 21 mg/dl Creatinine 1.60 mg/dl Est Creatinine Clear Calc Drug Dose 41.2 ml/min Estimated GFR () 47.5 Estimated GFR (Non- 40.9 BUN/Creatinine Ratio 13.1 Random Glucose 383 mg/dl Calcium Level 8.8 mg/dl Magnesium Level 2.3 mg/dl Total Bilirubin 0.4 mg/dl Direct Bilirubin 0.1 mg/dl Aspartate Amino Transf (AST/SGOT) 14 U/L Alanine Aminotransferase (ALT/SGPT) 19 U/L Alkaline Phosphatase 106 U/L Total Creatine Kinase 54 U/L Creatine Kinase MB 1.1 ng/ml Creatine Kinase MB Ratio 2.0 Troponin I < 0.015 ng/ml Total Protein 6.7 gm/dl Albumin 3.2 gm/dl Beta-Hydroxybutyric Acid 1.25 mg/dL Thyroid Stimulating Hormone (TSH) 0.639 uIu/ml Bedside Glucose 312 mg/dl Prothrombin Time 10.8 SECONDS Prothromb Time International Ratio 1.0 Activated Partial Thromboplast Time 27.0 SECONDS Partial Thromboplastin Ratio 1.0 Urine Color YELLOW Urine Appearance CLEAR Urine pH 5.5 Urine Specific [place] 1.020 Urine Protein NEG Urine Glucose (UA) 3+ Urine Ketones NEG Urine Occult Blood NEG Urine Nitrite NEG Urine Bilirubin NEG Urine Urobilinogen NEG Urine Leukocyte Esterase NEG Test 12/11/16 14:20 12/11/16 16:46 12/11/16 20:13 12/11/16 22:39 Influenza Type A (RT-PCR) Neg for Influ A Influenza Type A Antigen Neg for Influ A Influenza Type B Antigen Neg for Influ B Influenza Type B (RT-PCR) Neg for Influ B Bedside Glucose 123 mg/dl 180 mg/dl Total Creatine Kinase 47 U/L Creatine Kinase MB 1.0 ng/ml Creatine Kinase MB Ratio 2.1 Troponin I < 0.015 ng/ml Test 12/12/16 06:30 12/12/16 06:52 Bedside Glucose 135 mg/dl White Blood Count 8.00 K/uL Red Blood Count 3.79 M/uL Hemoglobin 12.0 g/dL Hematocrit 35.5 % Mean Corpuscular Volume 93.7 fL Mean Corpuscular Hemoglobin 31.7 pg Mean Corpuscular Hemoglobin Concent 33.8 g/dl Platelet Count 218 K/uL Mean Platelet Volume 9.8 fL Neutrophils (%) (Auto) 62.7 % Lymphocytes (%) (Auto) 18.3 % Monocytes (%) (Auto) 12.4 % Eosinophils (%) (Auto) 5.8 % Basophils (%) (Auto) 0.5 % Neutrophils # (Auto) 5.03 K/uL Lymphocytes # (Auto) 1.46 K/uL Monocytes # (Auto) 0.99 K/uL Eosinophils # (Auto) 0.46 K/uL Basophils # (Auto) 0.04 K/uL RDW Standard Deviation 44.7 fL RDW Coefficient of Variation 13.1 % Immature Granulocyte % (Auto) 0.3 % Immature Granulocyte # (Auto) 0.02 K/uL Prothrombin Time 11.3 SECONDS Prothromb Time International Ratio 1.1 Activated Partial Thromboplast Time 32.0 SECONDS Partial Thromboplastin Ratio 1.2 Sodium Level 143 mmol/L Potassium Level 3.9 mmol/L Chloride Level 110 mmol/L Carbon Dioxide Level 27 mmol/L Anion Gap 6.0 mmol/L Blood Urea Nitrogen 18 mg/dl Creatinine 1.30 mg/dl Est Creatinine Clear Calc Drug Dose 50.7 ml/min Estimated GFR () 61.0 Estimated GFR (Non- 52.6 BUN/Creatinine Ratio 13.7 Random Glucose 147 mg/dl Calcium Level 9.1 mg/dl Magnesium Level 2.3 mg/dl Total Creatine Kinase 44 U/L Creatine Kinase MB 1.0 ng/ml Creatine Kinase MB Ratio 2.3 Troponin I < 0.015 ng/ml Assessment and Plan 76 yo M with Dyspnea on exertion/generalized fatigue/orthostasis-- - Possible that this is secondary to dehydration without other symptoms to suggest infectious etiology. No sick contacts. - Serial cardiac enzymes negative x 3, - 2-D echo completed: -- Conclusions -- * Left ventricular systolic function is mildly reduced. * Grade I diastolic dysfunction, (abnormal relaxation pattern). * There is mild mitral regurgitation. * Right ventricular systolic pressure is elevated at 30-40mmHg. * When compared directly to a study from May 2011, there does appear to be some slight decrease in the LV systolic function. - Slow IVFs from 100 to 75 ml/hr with good oral intake - likely able to dc later this afternoon. - UA clear, no need for urine culture - Follow orthostatics today - had a 25 point drop systolically this morning, keep pt overnight to continue to monitor orthostatics. Orthostatic hypotension-- - Continue Florinef 0.2 mg by mouth every morning. - Add midodrine 5 mg by mouth 3 times a day. Hx of Stent placement - placed ~ [address] López - Aspirin 81 mg by daily, clopidogrel 75 mg by mouth daily. Diabetes mellitus-- - Continue to use his own insulin pump and determine his own coverage. - ISS with accuchecks - glucose 135 this morning. GERD--change Nexium to pantoprazole, and ranitidine 3 mg by mouth at bedtime. Depression-- - Continue Wellbutrin XL, gabapentin, sertraline and zolpidem tartrate. BPH - continue Rapaflo and Proscar CODE STATUS: FULL CODE Disposition: From home, lives with , admitted on observation. Possible d/c within 24 hours. Discussed with at bedside and updated, all their questions and concerns were addressed.
[2016-12-12] MEDS: ASPIRIN 81 MG ECTAB PO SCH (19:56)
[2016-12-12] MEDS: RANITIDINE HCL 150 MG TAB PO SCH (19:57)
[2016-12-12] MEDS: ASCORBIC ACID 500 MG TAB PO SCH (19:58)
[2016-12-12] MEDS: FINASTERIDE 5 MG TAB PO SCH (19:58)
[2016-12-13 00:05] VITALS: BP 130/71; PULSE 54; TEMP 37; O2SAT 98
[2016-12-13] MEDS: ZOLPIDEM TARTRATE 5 MG TAB PO PRN (00:37)
[2016-12-13 04:20] VITALS: BP_SYST 106; BP_SYST 108; BP_SYST 147; BP_DIAS 62; BP_DIAS 63; BP_DIAS 64; PULSE 61; PULSE 62; PULSE 70; TEMP 36.8; O2SAT 96
[2016-12-13] MEDS: SODIUM CHLORIDE 0.9% 1000ML 1,000 ML IV SCH (04:45)
[2016-12-13 07:22] VITALS: BP 157/80; PULSE 72; TEMP 36.8; O2SAT 96
[2016-12-13 07:39] LABS: BASO % 0.6 %; BASO ABS # 0.05 K/uL (0-0.2); COMPLETE YES; EOS % 5.8 %; HEMATOCRIT 34.2 % (42-52); IG% 0.2 %; LYMPH % 13.3 %; MEAN CELL VOLUME 93.2 fL (80-100); MEAN CORPUSCULAR HEMOGLOBIN 31.6 pg (25-34); MEAN CORPUSCULAR HGB CONC 33.9 g/dl (32-36); MEAN PLATELET VOLUME 9.6 fL (7.4-10.4); MONO % 9.7 %; NEUT % 70.4 %; PLATELET COUNT 231 K/uL (130-400); RED BLOOD COUNT 3.67 M/uL (4.7-6.1); WHITE BLOOD COUNT 8.99 K/uL (4.8-10.8)
[2016-12-13 07:46] LABS: PARTIAL THROMBOPLASTIN RATIO 1.1; PROTHROMBIN TIME (PATIENT) 10.9 SECONDS (9.0-12.0)
[2016-12-13 08:05] LABS: CALCIUM 8.4 mg/dl (8.5-10.1); CREATININE 1.2 mg/dl (0.60-1.40); POTASSIUM 3.7 mmol/L (3.5-5.1)
[2016-12-13] MEDS: NovoLOG INSULIN PUMP SCH ×2 (09:00→11:00)
[2016-12-13] MEDS: SERTRALINE HCL 100 MG TAB PO SCH (09:12)
[2016-12-13] MEDS: CLOPIDOGREL BISULFATE 75 MG TAB PO SCH (09:12)
[2016-12-13] MEDS: CHOLECALCIFEROL 1000 INTER.UNIT TAB PO SCH (09:12)
[2016-12-13] MEDS: FERROUS SULFATE 325 MG TAB PO SCH (09:12)
[2016-12-13] MEDS: PANTOprazole SOD 40 MG TAB PO SCH (09:13)
[2016-12-13] MEDS: MIDODRINE 2.5 MG TAB PO SCH ×3 (09:13→16:28)
[2016-12-13] MEDS: FLUDROCORTISONE ACETATE 0.1 MG TAB PO SCH (09:13)
[2016-12-13] MEDS: MULTIVITAMIN TAB PO SCH (09:13)
[2016-12-13] MEDS: BuPROPion XL 300 MG TABCR PO SCH (09:13)
[2016-12-13] MEDS: GABAPENTIN 300 MG CAP PO SCH (09:13)
[2016-12-13 11:06] VITALS: BP_SYST 124; BP_SYST 128; BP_SYST 151; BP_DIAS 69; BP_DIAS 71; BP_DIAS 72; PULSE 69; PULSE 74; TEMP 36.9; O2SAT 96
[2016-12-13 15:24] VITALS: BP_SYST 135; BP_SYST 148; BP_SYST 154; BP_DIAS 70; BP_DIAS 76; PULSE 67; PULSE 68; PULSE 71
[2016-12-13] MEDS ORDERED: PRMT25 PO (15:42)
--- NOTE | 2016-12-13 15:42 | Discharge Instructions ---
Discharge Instructions Date of Service Dec 13, 2016. Admission Reason for Admission: Dyspnea On Exertion, Generalized Weakness Discharge Discharge Diagnosis / Problem: orthostasis Discharge Goals Goal(s): Decrease discomfort, Improve function, Increase independence, Improve disease control, Improve nutritional status, Learn about illness, Diagnostic testing, Therapeutic intervention, Prevent Disease Progression, Specific goals Activity Recommendations Activity Limitations: resume your previous activity (fall precaution) . Instructions / Follow-Up Instructions / Follow-Up you have Dyspnea on exertion/generalized fatigue/orthostasis, improved possible dehydration , continue plenty fluid intake new medicine is midodrine 5 mg by mouth 3 times a day. you need to check Blood pressure twice daily , bring number to pcp in follow up visit fall precaution - you need to follow up with your primary care physician in 1 week, - take medication as instructed, never overdose or any misuse, or take with alcohol, because misuse of medicine may cause organ damage or , call your primary care physician if have questions of medicaitons. - call your primary care physician OR go to local emergency room if has any fever/chill, chest pain, shortness of breathing, nausea/vomiting/abdominal pain , facial droop/slurry speech/local weakness, or if has any questions. - fall precaution - diet as instructed - you need to follow up with your subspecialist - you should understand that it is important to follow up the above instruction , and "not following the above instruction" may cause delayed or missed care of your medical conditions which may cause permanent organ damage and even . Current Hospital Diet Patient's current hospital diet: AHA Diet (Heart Healthy), Diabetes Type 2 Diet Discharge Diet Recommended Diet: Diabetes Type 2 Diet Procedures Procedures Performed: no Pending Studies Studies pending at discharge: no Laboratory Results Meds Administered (Past 24Hrs) Medications (Trade) Dose Ordered Sig/Henrry Route Start Time Stop Time Status Last Admin Dose Admin Sodium Chloride 1,000 ml @ 75 mls/hr [id number] IV 12/11/16 17:15 01/10/17 17:14 12/13/16 04:45 75 MLS/HR Aspirin (Ecotrin Tab) 81 mg HS PO 12/11/16 21:00 01/10/17 20:59 12/12/16 19:56 81 MG Bupropion HCl (Wellbutrin-Xl Tab) 300 mg QAM PO 12/12/16 09:00 01/11/17 08:59 12/13/16 09:13 300 MG Cholecalciferol (Vitamin D Tab) 2,000 inter.unit QAM PO 12/12/16 09:00 01/11/17 08:59 12/13/16 09:12 2,000 INTER.UNIT Clopidogrel Bisulfate (plAVix TAB) 75 mg QAM PO 12/12/16 09:00 01/11/17 08:59 12/13/16 09:12 75 MG Finasteride (Proscar Tab) 5 mg HS PO 12/11/16 21:00 01/10/17 20:59 12/12/16 19:58 5 MG Fludrocortisone Acetate (Florinef Tab) 0.2 mg QAM PO 12/12/16 09:00 01/11/17 08:59 12/13/16 09:13 0.2 MG Gabapentin (Neurontin Cap) 300 mg BID PO 12/11/16 21:00 01/10/17 20:59 12/13/16 09:13 300 MG Multivitamins (Multivitamin Tab) 1 tab QAM PO 12/12/16 09:00 01/11/17 08:59 12/13/16 09:13 1 TAB Sertraline HCl (Zoloft Tab) 200 mg QAM PO 12/12/16 09:00 01/11/17 08:59 12/13/16 09:12 200 MG Ascorbic Acid (Vitamin C Tab) 1,000 mg HS PO 12/11/16 21:00 01/10/17 20:59 12/12/16 19:58 1,000 MG Pantoprazole Sodium (Protonix Tab) 40 mg QAM PO 12/12/16 09:00 01/11/17 08:59 12/13/16 09:13 40 MG Ferrous Sulfate (Feosol Tab) 325 mg QAM PO 12/12/16 09:00 01/11/17 08:59 12/13/16 09:12 325 MG Ranitidine HCl (zANTac TAB) 300 mg HS PO 12/11/16 21:00 01/10/17 20:59 12/12/16 19:57 300 MG Midodrine (Proamatine Tab) 5 mg TID@, PO 12/11/16 17:00 01/10/17 16:59 12/13/16 12:10 5 MG Insulin Aspart (novoLOG INSULIN PUMP) 1 ea ACHS N/A 12/11/16 21:00 01/10/17 20:59 12/13/16 11:00 1 EA Influenza Virus Vaccine (Fluzone High-Dose Pf 0.5 ml) 0.5 ml ONCE ONCE IM. 12/11/16 19:45 12/11/16 19:46 DC 12/12/16 16:21 0.5 ML Medical Emergencies . Who to Call and When: Medical Emergencies: If at any time you feel your situation is an emergency, please call 911 immediately. . Non-Emergent Contact Non-Emergency issues call your: Primary Care Provider Call Non-Emergent contact if: you have any medication questions (or dizziness) . . "Provider Documentation" section prepared by Warren Ramsey. . VTE Core Measure Inpt VTE Proph given/why not?: SCD's
[2016-12-13 15:44] VITALS: BP 135/70; PULSE 68; TEMP 36.9; O2SAT 96
--- NOTE | 2016-12-13 15:51 | Discharge Summary ---
Discharge Summary Date of Service Dec 13, 2016. Discharge Summary Admission Date: Dec 11, 2016 at 14:32 Discharge Date: Dec 13, 2016 Principal Diagnosis: orthostasis, Problems/Secondary Diagnoses: Dyspnea on exertion/generalized fatigue/ possible dehydration , Immunizations: Have You Had Influenza Vaccine: Yes Influenza Vaccine Date: Dec 15, 2012 History of Tetanus Vaccine?: Yes History of Pneumococcal: Yes Pneumococcal Date: Nov 20, 2011 History of Hepatitis B Vaccine: No Procedures: no Consultations: no Medication Reconciliation New Medications: Midodrine (Midodrine HCl) 2.5 Mg Tab 5 MG PO TID@08,12,17 for 15 Days, TAB Continued Medications: Ascorbic Acid (Vitamin C) 1,000 Mg Tab 1000 MG PO HS Aspirin (Aspirin Ec) 81 Mg Tab 81 MG PO HS Bupropion (Wellbutrin-Xl) 300 Mg Tabcr 300 MG PO QAM, 0 Refills Cholecalciferol (Vitamin D) 1,000 Inter.unit Tab 2000 INTER.UNIT PO QAM, 0 Refills Clopidogrel (Plavix) 75 Mg Tab 75 MG PO QAM, TAB Esomeprazole Magnesium (Nexium) 40 Mg Capcr 40 MG PO QAM, CAP Ferrous Sulfate (Ferrous Sulfate) 325 Mg Tab 1 TAB PO QAM Finasteride (Proscar) 5 Mg Tab 5 MG PO HS, TAB Fludrocortisone Acetate (Florinef) 0.1 Mg Tab 0.2 MG PO QAM, TAB Gabapentin (Neurontin) 300 Mg Cap 300 MG PO BID Glucagon (Glucagon Emergency Kit) 1 Mg Kit 1 Insulin Aspart (novoLOG INSULIN PUMP ) 1 Ea Inj 1 EA N/A UD, EA Multivitamin (Multivitamin) Tab 1 TAB PO QAM, TAB Nitroglycerin (Nitrostat) 0.4 Mg Sub 0.4 MG UT PRN Ranitidine (Zantac) 300 Mg Tab 300 MG PO HS Sertraline (Zoloft) 100 Mg Tab 200 MG PO QAM Silodosin (Rapaflo) 4 Mg Cap 4 MG PO QAM Zolpidem Tartrate (Ambien *) 10 Mg Tab 6.25 MG PO HS Zolpidem Tartrate (Zolpidem Tartrate) 5 Mg Tab 1 TAB PO HS PRN for Sleep, TAB Discharge Exam have been doing well, no JACKSON when up and walk, and no dizziness Review of Systems: Constitutional: No fever, No chills, No sweats, No weight loss, No weakness , No fatigue, No problem reported Eyes: No worsening of vision, No eye pain, No redness, No discharge, No diplopia, No problem reported ENT: No hearing loss, No unusual epistaxis, No nasal symptoms, No sore throat, No tinnitus, No dental problems, No trouble swallowing, No problem reported Respiratory: No cough, No sputum, No wheezing, No shortness of breath, No dyspnea on exertion, No dyspnea at rest, No hemoptysis, No problem reported Cardiovascular: No chest pain, No orthopnea, No PND, No edema, No claudication, No palpitations, No problem reported Abdomen: No pain, No nausea, No vomiting, No diarrhea, No constipation, No GI bleeding, No problem reported Musculoskeletal: No joint pain, No muscle pain, No swelling, No calf pain, No problem reported Genitourinary - Male: No hematuria, No dysuria, No urinary frequency, No urinary urgency, No urinary hesitancy, No urinary retention, No urinary incontinence, No penile discharge, No lesions, No impotence, No problem reported Neurologic: No memory loss, No paralysis, No weakness, No numbness/tingling , No vertigo, No balance problems, No problem reported Psychiatric: No depression symptoms, No anhedonism, No anxiety, No insomnia , No substance abuse, No problem reported Endocrine: No fatigue, No excessive thirst, No excessive urination, No problem reported Hematologic / Lymphatic: No abnormal bleeding/bruising, No clotting problems , No swollen lymph nodes, No night sweats, No problem reported Physical Exam: General Appearance: WD/WN, no apparent distress Eyes: normal inspection, PERRL, EOMI ENT: normal ENT inspection, hearing grossly normal, TMs normal, pharynx normal Neck: supple, no adenopathy, thyroid normal Respiratory/Chest: chest non-tender, lungs clear, normal breath sounds, no respiratory distress Cardiovascular: regular rate, rhythm, no edema, no gallop, no JVD Abdomen / GI: normal bowel sounds, non tender, soft, no organomegaly, no pulsatile mass Extremities: normal inspection, no calf tenderness, normal capillary refill , normal range of motion, + swelling (trace) Neurologic/Psychiatric: family protection specialist II-XII nml as tested, no motor/sensory deficits , alert, normal mood/affect Skin: normal color, warm/dry Hospital Course 76 yo M with Dyspnea on exertion/generalized fatigue/orthostasis-- - Possible that this is secondary to dehydration without other symptoms to suggest infectious etiology. No sick contacts. - Serial cardiac enzymes negative x 3, - 2-D echo completed: -- Conclusions -- * Left ventricular systolic function is mildly reduced. * Grade I diastolic dysfunction, (abnormal relaxation pattern). * There is mild mitral regurgitation. * Right ventricular systolic pressure is elevated at 30-40mmHg. * When compared directly to a study from May 2011, there does appear to be some slight decrease in the LV systolic function. - Slow IVFs from 100 to 75 ml/hr with good oral intake, has been up and walk, no dizziness, orthostatic sbp was dropping , although is still positive, but is better, and patient has no any symptoms - UA clear, no need for urine culture - Follow orthostatics today - had a 25 point drop systolically this morning, keep pt overnight to continue to monitor orthostatics, is better today Orthostatic hypotension-- - Continue Florinef 0.2 mg by mouth every morning. - Add midodrine 5 mg by mouth 3 times a day. Hx of Stent placement - placed ~ [address] López - Aspirin 81 mg by daily, clopidogrel 75 mg by mouth daily. Diabetes mellitus-- - Continue to use his own insulin pump and determine his own coverage. - ISS with accuchecks - glucose 135 this morning. GERD--change Nexium to pantoprazole, and ranitidine 3 mg by mouth at bedtime. Depression-- - Continue Wellbutrin XL, gabapentin, sertraline and zolpidem tartrate. BPH - continue Rapaflo and Proscar CODE STATUS: FULL CODE Instructions / Follow-Up you have Dyspnea on exertion/generalized fatigue/orthostasis, improved possible dehydration , continue plenty fluid intake new medicine is midodrine 5 mg by mouth 3 times a day. you need to check Blood pressure twice daily , bring number to pcp in follow up visit fall precaution - you need to follow up with your primary care physician in 1 week, - take medication as instructed, never overdose or any misuse, or take with alcohol, because misuse of medicine may cause organ damage or , call your primary care physician if have questions of medicaitons. - call your primary care physician OR go to local emergency room if has any fever/chill, chest pain, shortness of breathing, nausea/vomiting/abdominal pain , facial droop/slurry speech/local weakness, or if has any questions. - fall precaution - diet as instructed - you need to follow up with your subspecialist - you should understand that it is important to follow up the above instruction , and "not following the above instruction" may cause delayed or missed care of your medical conditions which may cause permanent organ damage and even . Total Time Spent: Less than 30 minutes This includes examination of the patient, discharge planning, medication reconciliation, and communication with other providers. Discharge Instructions Please refer to the electronic Patient Visit Report (Discharge Instructions) for additional information. Additional Copies To Wolf Benson M.D.; Geoff Dorantes M.D.
== END 2016-12-13 16:43 | disposition home or self-care (01) ==
LOC: C.EDB 10:15 → C.2T 14:32 → ENRESERV 16:08
PROVIDERS: ADMIT Hospitalist; ATTEND Hospitalist
DX: R06.00 Dyspnea, unspecified (principal); R53.1 Weakness; I95.1 Orthostatic hypotension; I10 Essential (primary) hypertension; E78.5 Hyperlipidemia, unspecified; E11.40 Type 2 diabetes mellitus with diabetic neuropathy, unspecified; K21.9 Gastro-esophageal reflux disease without esophagitis; G47.00 Insomnia, unspecified; N40.0 Benign prostatic hyperplasia without lower urinary tract symptoms; F32.9 Major depressive disorder, single episode, unspecified; Z95.5 Presence of coronary angioplasty implant and graft; Z86.73 Personal history of transient ischemic attack (TIA), and cerebral infarction without residual deficits; Z79.02 Long term (current) use of antithrombotics/antiplatelets; Z79.82 Long term (current) use of aspirin; Z79.4 Long term (current) use of insulin; Z79.899 Other long term (current) drug therapy

== ENCOUNTER → 2017-01-06 | Outpatient (CLI) | payer BC ==
[~2017-01-06] MED LIST changes: +FERR1TAB62 PO; -FERR325T PO; +GLGKIT; -ZOLP5TAB6 PO
== END | disposition home or self-care (01) ==
LOC: C.LAB1850 13:21
PROVIDERS: ATTEND Internal Medicine Endocrinology, Diabetes & Metabolism
DX: E78.00 Pure hypercholesterolemia, unspecified (principal)

== ENCOUNTER → 2017-01-28 | Outpatient (CLI) | payer BC ==
[2017-01-28 12:21] LABS: HEMATOCRIT 37.8 % (42-52); MEAN CELL VOLUME 95.5 fL (80-100); MEAN CORPUSCULAR HEMOGLOBIN 31.8 pg (25-34); MEAN CORPUSCULAR HGB CONC 33.3 g/dl (32-36); MEAN PLATELET VOLUME 10.7 fL (7.4-10.4); PLATELET COUNT 223 K/uL (130-400); RED BLOOD COUNT 3.96 M/uL (4.7-6.1); WHITE BLOOD COUNT 13.99 K/uL (4.8-10.8)
[2017-01-28 12:29] LABS: URINE APPEARANCE CLEAR (CLEAR); URINE BILIRUBIN NEG (NEG); URINE COLOR DK YELLOW; URINE EPITHELIAL CELL AUTO 0-5 /lpf (0-5); URINE NITRITE NEG (NEG); URINE SPECIFIC GRAVITY 1.023 (1.000-1.030); UROBILINOGEN NEG (NEG)
[2017-01-28 12:30] LABS: MANUAL MICROSCOPIC REQUIRED? NO; REVIEW REQ? NO
[2017-01-28 13:08] LABS: URINE PROTIEN/CREAT RATIO 0.2 (0-0.2); URINE TOTAL PROTEIN 20.8 mg/dl (0-11.9)
[2017-01-28 13:14] LABS: BLOOD UREA NITROGEN 20 mg/dl (7-18); BUN/CREATININE RATIO 13.2 (10-20); CALCIUM 9.2 mg/dl (8.5-10.1); CARBON DIOXIDE 27 mmol/L (21-32); CHLORIDE 102 mmol/L (98-107); CREATININE 1.54 mg/dl (0.60-1.40); GLUCOSE 324 mg/dl (70-99); PHOSPHORUS 3.4 mg/dl (2.5-4.9); POTASSIUM 4.8 mmol/L (3.5-5.1); SODIUM 136 mmol/L (136-145)
[2017-01-28 13:24] LABS: BETA-HYDROXYBUTYRATE 1.43 mg/dL (0.2-2.81)
== END | disposition home or self-care (01) ==
LOC: C.LAB1850 09:30
PROVIDERS: ATTEND Internal Medicine Nephrology
DX: N18.3 Chronic kidney disease, stage 3 (moderate) (principal); D64.9 Anemia, unspecified; N20.0 Calculus of kidney; E55.9 Vitamin D deficiency, unspecified

== ENCOUNTER 2017-02-05 10:56 | Emergency (ER) | payer BC ==
[~2017-02-05] VITALS: Ht 180.3 cm; Wt 89.0 kg
[~2017-02-05 10:56] MED LIST changes: -GLGKIT; +GLGKIT SC
[2017-02-05 11:03] VITALS: TEMP 36.4; Ht 180.3 cm; Wt 89.0 kg
[2017-02-05] MEDS ORDERED: ZOLP5TAB PO (11:41)
[2017-02-05] MEDS ORDERED: ZNTT/150 PO (11:41)
[2017-02-05] MEDS ORDERED: ASPI81TA28 PO (11:41)
[2017-02-05] MEDS ORDERED: FERR1TAB13 PO (11:41)
[2017-02-05] MEDS ORDERED: ZOLP6.252 PO (11:41)
[2017-02-05] MEDS ORDERED: ASCO10003 PO (11:41)
[2017-02-05] MEDS ORDERED: VTMD1000 PO (11:41)
[2017-02-05] MEDS ORDERED: MULT-506 PO (11:41)
[2017-02-05 11:56] LABS: BASO % 0.2 %; BASO ABS # 0.02 K/uL (0-0.2); COMPLETE YES; EOS % 1.8 %; HEMATOCRIT 37.2 % (42-52); IG% 0.3 %; LYMPH % 12.7 %; LYMPH ABS # 1.37 K/uL (1.2-3.4); MEAN CELL VOLUME 96.1 fL (80-100); MEAN CORPUSCULAR HEMOGLOBIN 31.8 pg (25-34); MEAN CORPUSCULAR HGB CONC 33.1 g/dl (32-36); MEAN PLATELET VOLUME 10.1 fL (7.4-10.4); MONO % 8.2 %; NEUT % 76.8 %; PLATELET COUNT 233 K/uL (130-400); RED BLOOD COUNT 3.87 M/uL (4.7-6.1); WHITE BLOOD COUNT 10.77 K/uL (4.8-10.8)
[2017-02-05 12:14] LABS: BUN/CREATININE RATIO 13.1 (10-20); CALCIUM 9.2 mg/dl (8.5-10.1); CREATININE 1.61 mg/dl (0.60-1.40); POTASSIUM 4.5 mmol/L (3.5-5.1)
--- NOTE | 2017-02-05 13:20 | DIAGNOSTIC IMAGING REPORT ---
RIGHT FIRST TOE RADIOGRAPHS CLINICAL HISTORY: Right first toe infection. COMPARISON: None FINDINGS: Alignment of the right first toe is anatomic. There is soft tissue swelling of the right first toe. 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 No fracture is identified. On lateral view, there is indistinctness of the dorsal distal cortex of the right first metatarsal. This is probably artifactual. IMPRESSION: 1. Apparent indistinctness of the dorsal distal cortex of the right first metatarsal on lateral projection. This is likely artifactual however osteomyelitis mild could appear similar. An MRI could be obtained as indicated. Right first digit soft tissue swelling. 2. 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 Electronically signed by: Obdulio Pinzon M.D. 02/05/2017 1:19 PM Dictated Date/Time: 02/05/2017 12:54 PM
[2017-02-05 13:27] VITALS: BP 133/69; PULSE 66; O2SAT 99
[2017-02-05] MEDS ORDERED: SULFAMETHOXAZOLE/TRIMETHOPRIM DS 800/160MG TAB PO ONE (13:45)
[2017-02-05] MEDS ORDERED: CEPHALEXIN MONOHYDRATE 250 MG CAP PO ONE (13:45)
[2017-02-05] MEDS ORDERED: CEPH500C PO (13:46)
[2017-02-05] MEDS ORDERED: SULF800T23 PO (13:46)
--- NOTE | 2017-02-05 16:47 | EMERGENCY ROOM VISIT NOTE ---
History Report prepared by Raymundo: Cedric Batres Under the Supervision of: Dr. Bogdan Ramos D.O. First contact with patient: 11:12 Chief Complaint: INFECTION Stated Complaint: BOTH BIG TOES ARE SEVERELY INFECTED History of Present Illness The patient is a 76 year old male who presents to the Emergency Room with complaints of worsening infections on both big toes for the past couple of weeks. The patient states that he was gardening a couple of weeks ago, and he must have gotten some dirt in his shoes. Initially, the patient had blisters on his toes. The patient states that he is a diabetic, and he has some sensation in his toes, though it is decreased. Pt denies headache, change in vision, fevers, chest pain, shortness of breath, nausea, vomiting, diarrhea, pain with urination, and melena. Source of History: patient Onset: a couple weeks ago Position: toe(s) (big toes) Quality: other (infection) Timing: worsening Associated Symptoms: No fevers, No nausea, No vomiting Note: Associated symptoms: Blisters Review of Systems See HPI for pertinent positives & negatives. A total of 10 systems reviewed and were otherwise negative. Past Medical & Surgical Medical Problems: (1) Depression (2) Diab Edilia Wo Compl, Type Ii Or Unspec Type, Not Uncntrld (3) Esophageal Reflux (4) Generalized weakness (5) GERD (gastroesophageal reflux disease) (6) Heart disease (7) Hyperlipemia (8) Hyperlipidemia (9) Hypertension Nos (10) Insomnia (11) Lens Replacement Nec (12) Neuropathy (13) Transient ischemic attack (TIA) Surgical Problems: (1) History of heart artery stent Family History Diabetes mellitus Social History Smoking Status: Never Smoker Drug Use: none Marital Status: Housing Status: lives with family Occupation Status: employed Current/Historical Medications Scheduled Ascorbic Acid (Vitamin C), 1,000 MG PO DAILY Aspirin (Aspirin Ec), 81 MG PO DAILY Bupropion (Wellbutrin-Xl), 300 MG PO QAM Cephalexin Monohydrate (Keflex), 500 MG PO QID Cholecalciferol (Vitamin D3), 2,000 UNITS PO DAILY Clopidogrel (Plavix), 75 MG PO QAM Esomeprazole Magnesium (Nexium), 40 MG PO QAM Ferrous Sulfate (Kp Ferrous Sulfate), 1 TAB PO DAILY Finasteride (Proscar), 5 MG PO HS Fludrocortisone Acetate (Florinef), 0.2 MG PO QAM Gabapentin (Neurontin), 300 MG PO BID Glucagon (Glucagon Emergency Kit), 1 DOSE SC UD Insulin Aspart (novoLOG INSULIN PUMP ), 1 EA N/A UD Multivitamin (Multivitamin), 1 TAB PO DAILY Nitroglycerin (Nitrostat), 0.4 MG UT PRN Ranitidine (Zantac), 150 MG PO BID Sertraline (Zoloft), 200 MG PO QAM Silodosin (Rapaflo), 4 MG PO QAM Sulfa/Trimethoprim (Bactrim Ds 800MG/160MG), 1 TAB PO BID Zolpidem Tartrate (Ambien Cr), 6.25 MG PO HS Scheduled PRN Zolpidem Tartrate (Ambien), 5 MG PO HS PRN for Sleep Allergies Coded Allergies: Horse Serum Proteins (Verified Allergy, Unknown, HAPPENED A CHILD, 01/17) Metoprolol (Verified Adverse Reaction, Intermediate, SEVERE HEADACHE, 02/05) Physical Exam Vital Signs Date Time Temp Pulse Resp B/P (MAP) Pulse Ox O2 Delivery O2 Flow Rate FiO2 02/05/17 13:27 66 20 133/69 99 Room Air 02/05/17 11:03 36.4 88 20 137/68 96 Room Air Physical Exam GENERAL: Sitting up in bed, disheveled, no distress, non-toxic EYE EXAM: normal conjunctiva. OROPHARYNX: no exudate, no erythema, lips, buccal mucosa, and tongue normal and mucous membranes are moist NECK: supple, no nuchal rigidity, no adenopathy, non-tender LUNGS: Clear to auscultation. Normal chest wall mechanics HEART: no murmurs, S1 normal and S2 normal ABDOMEN: abdomen soft, non-tender, normo-active bowel sounds, no masses, no rebound or guarding. SKIN: no rashes and no bruising UPPER EXTREMITIES: upper extremities are grossly normal. LOWER EXTREMITIES: On the left great toe there is a 2 x .5cm and a 1 x 1cm blister which is well healed. Mild surrounding redness. No discharge or fluctuance. 1.5 x 1.5cm blister on the right great toe. Blister does have some degradation of the skin with no purulent discharge. No muscle involvement. Does not appear to involve bone. No pitting edema. NEURO EXAM: Normal sensorium, cranial nerves II-XII grossly intact, normal speech, no gross weakness of arms, no gross weakness of legs. Gross sensation intact. Medical Decision & Procedures ER Provider Diagnostic Interpretation: Radiology results as stated below per my review and the radiologist's interpretation: RIGHT FIRST TOE RADIOGRAPHS CLINICAL HISTORY: Right first toe infection. COMPARISON: None FINDINGS: Alignment of the right first toe is anatomic. There is soft tissue swelling of the right first toe. 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 No fracture is identified. On lateral view, there is indistinctness of the dorsal distal cortex of the right first metatarsal. This is probably artifactual. IMPRESSION: 1. Apparent indistinctness of the dorsal distal cortex of the right first metatarsal on lateral projection. This is likely artifactual however osteomyelitis mild could appear similar. An MRI could be obtained as indicated. Right first digit soft tissue swelling. 2. 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 Electronically signed by: Obdulio Pinzon M.D. 02/05/2017 1:19 PM Dictated Date/Time: 02/05/2017 12:54 PM Laboratory Results 02/05/17 11:39 Red Blood Count 3.87, Mean Corpuscular Volume 96.1, Mean Corpuscular Hemoglobin 31.8, Mean Corpuscular Hemoglobin Concent 33.1, Mean Platelet Volume 10.1, Neutrophils (%) (Auto) 76.8, Lymphocytes (%) (Auto) 12.7, Monocytes (%) (Auto) 8.2, Eosinophils (%) (Auto) 1.8, Basophils (%) (Auto) 0.2, Neutrophils # (Auto) 8.28, Lymphocytes # (Auto) 1.37, Monocytes # (Auto) 0.88, Eosinophils # (Auto) 0.19, Basophils # (Auto) 0.02 02/05/17 11:39 Test 02/05/17 11:39 White Blood Count 10.77 K/uL (4.8-10.8) Red Blood Count 3.87 M/uL (4.7-6.1) Hemoglobin 12.3 g/dL (14.0-18.0) Hematocrit 37.2 % (42-52) Mean Corpuscular Volume 96.1 fL (80-100) Mean Corpuscular Hemoglobin 31.8 pg (25-34) Mean Corpuscular Hemoglobin Concent 33.1 g/dl (32-36) Platelet Count 233 K/uL (130-400) Mean Platelet Volume 10.1 fL (7.4-10.4) Neutrophils (%) (Auto) 76.8 % Lymphocytes (%) (Auto) 12.7 % Monocytes (%) (Auto) 8.2 % Eosinophils (%) (Auto) 1.8 % Basophils (%) (Auto) 0.2 % Neutrophils # (Auto) 8.28 K/uL (1.4-6.5) Lymphocytes # (Auto) 1.37 K/uL (1.2-3.4) Monocytes # (Auto) 0.88 K/uL (0.11-0.59) Eosinophils # (Auto) 0.19 K/uL (0-0.5) Basophils # (Auto) 0.02 K/uL (0-0.2) RDW Standard Deviation 44.9 fL (36.4-46.3) RDW Coefficient of Variation 13.0 % (11.5-14.5) Immature Granulocyte % (Auto) 0.3 % Immature Granulocyte # (Auto) 0.03 K/uL (0.00-0.02) Anion Gap 6.0 mmol/L (3-11) Est Creatinine Clear Calc Drug Dose 40.9 ml/min Estimated GFR () 47.1 Estimated GFR (Non- 40.6 BUN/Creatinine Ratio 13.1 (10-20) Calcium Level 9.2 mg/dl (8.5-10.1) Laboratory results per my review. Medications Administered Medications (Trade) Dose Ordered Sig/Henrry Route Start Time Stop Time Status Last Admin Dose Admin Cephalexin Monohydrate (Keflex Cap) 500 mg NOW ONCE PO 02/05/17 13:45 02/05/17 13:46 DC 02/05/17 14:00 500 MG Trimethoprim/ Sulfamethoxazole (Septra Ds 800/ 160MG Tab) 1 tab NOW ONCE PO 02/05/17 13:45 02/05/17 13:46 DC 02/05/17 14:00 1 TAB ED Course ED COURSE: Vital signs were reviewed and showed situational hypertension The patients medical record was reviewed The above diagnostic studies were performed and reviewed. ED treatments and interventions as stated above. 1112: The patient was evaluated in room B3. A complete history and physical examination was performed. 1247: I reassessed the patient, and he was in X-ray. I updated the on the findings. 1345: Septra Ds 800/160mg Tab PO, Keflex Cap 500mg PO 1350: Upon reevaluation, the patient is doing well.I discussed my findings with the patient and he understands and agrees with the treatment plan. Based on the patients age, coexisting illnesses, exam and lab findings the decision to treat as an outpatient was made. The patient remained stable while under my care. The patient appeared well at the time of discharge. Medical Decision Differential diagnosis includes etiologies such as cellulitis, abscess, MRSA infection, DVT, necrotizing fasciitis, dermatitis, drug eruption, as well as others were entertained. Patient is a 76-year-old diabetic who presents to ER for bilateral ulcers on his feet. 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 They eventually opened up and now he has some surrounding erythema. On exam left toe has mild erythema but the wounds appear well healed right toe on the plantar aspect does have an obvious infected ulcer. No purulence. I do not believe this involves the bone as it appears to be superficial. Did obtain an x-ray which favored no osteomyelitis. Patient has been afebrile. No leukocytosis. Clinically there is no osteal. Did set him up with wound care clinic. With his creatinine clearance being greater than 30 he was placed on Bactrim and Keflex. Care management assistance with setting up appointment for wound care clinic. Discussed with Pt concerning signs and symptoms to watch out for. Pt was instructed to follow up with their PCP and discussed with the patient their option to return to the ED at anytime for persistent or worsening symptoms. The appropriate anticipatory guidance and out-patient management, including indications for return to the emergency department, were explained at length to the patient and understood. Medication Reconcilliation Current Medication List: was personally reviewed by me Blood Pressure Screening Patient's blood pressure: Elevated blood pressure Blood pressure disposition: Elevated BP felt to be situational Impression Primary Impression: Infected blister of toe of right foot Scribe Attestation The scribe's documentation has been prepared under my direction and personally reviewed by me in its entirety. I confirm that the note above accurately reflects all work, treatment, procedures, and medical decision making performed by me. Departure Information Dispostion Home / Self-Care Prescriptions Sulfa/Trimethoprim (Bactrim Ds 800MG/160MG) Tab 1 TAB PO BID, #20 TAB Prov: Bogdan Ramos, DO 02/05/17 Cephalexin Monohydrate (Keflex) 500 Mg Cap 500 MG PO QID, #40 CAP Prov: Bogdan Ramos, DO 02/05/17 Referrals Geoff Dorantes M.D. (PCP) Forms HOME CARE DOCUMENTATION FORM, IMPORTANT VISIT INFORMATION, WORK / SCHOOL INSTRUCTIONS Patient Instructions ED Ulcer Skin Simple, [facility] Additional Instructions Please follow up with your primary care doctor with in the next 24 hours. Any worsening of your symptoms, please return to the ED immediately. This includes any fevers greater than 100.4, worsening pain, chest pain, shortness breath, persistent nausea, vomiting, unable to eat or drink, or any other concerning signs or symptoms from your standpoint. Please take both antibiotics as prescribed. Please follow up with the wound care clinic for the infection on your right toe. He will need extremely close follow-up and antibiotics to ensure that this is healing as you are a diabetic. Problem Qualifiers Primary Impression: Infected blister of toe of right foot Encounter type: initial encounter Qualified Codes: S90.424A - Blister ( nonthermal), right lesser toe(s), initial encounter; L08.9 - Local infection of the skin and subcutaneous tissue, unspecified
== END 2017-02-05 14:17 | disposition home or self-care (01) ==
LOC: C.EDB 10:57
DX: S90.424A Blister (nonthermal), right lesser toe(s), initial encounter (principal); X58.XXXA Exposure to other specified factors, initial encounter; L08.9 Local infection of the skin and subcutaneous tissue, unspecified; E11.9 Type 2 diabetes mellitus without complications; K21.9 Gastro-esophageal reflux disease without esophagitis; I11.0 Hypertensive heart disease with heart failure; E78.5 Hyperlipidemia, unspecified; Z83.3 Family history of diabetes mellitus; Z79.82 Long term (current) use of aspirin; Z79.4 Long term (current) use of insulin

== ENCOUNTER → 2017-03-12 | Outpatient (CLI) | payer BC ==
[~2017-03-12] MED LIST changes: -AMB10 PO; -CHOL100010 PO; +FERR1TAB13 PO; -FERR1TAB62 PO; -RANI300T2 PO; +VTMD1000 PO; +ZNTT/150 PO; +ZOLP5TAB PO; +ZOLP6.252 PO
== END | disposition home or self-care (01) ==
LOC: C.LAB1850 11:43
PROVIDERS: ATTEND Internal Medicine Endocrinology, Diabetes & Metabolism
DX: E11.65 Type 2 diabetes mellitus with hyperglycemia (principal); E78.00 Pure hypercholesterolemia, unspecified

== ENCOUNTER → 2017-03-28 | Outpatient (CLI) | payer BC ==
[~2017-03-28] MED LIST changes: +CEPH500C2 PO
[2017-03-28 13:27] LABS: HEMATOCRIT 38.8 % (42-52); HEMOGLOBIN 12.8 g/dL (14.0-18.0); MEAN CELL VOLUME 93.9 fL (80-100); MEAN PLATELET VOLUME 10.3 fL (7.4-10.4); PLATELET COUNT 271 K/uL (130-400); RED CELL DISTRIBUTION WIDTH CV 13.1 % (11.5-14.5); RED CELL DISTRIBUTION WIDTH SD 44.9 fL (36.4-46.3); WHITE BLOOD COUNT 9.86 K/uL (4.8-10.8)
[2017-03-28 14:02] LABS: ALBUMIN 3.6 gm/dl (3.4-5.0); BLOOD UREA NITROGEN 28 mg/dl (7-18); CALCIUM 9.2 mg/dl (8.5-10.1); CARBON DIOXIDE 27 mmol/L (21-32); CREATININE 1.76 mg/dl (0.60-1.40); GLUCOSE 298 mg/dl (70-99); PHOSPHORUS 2.5 mg/dl (2.5-4.9); POTASSIUM 4.3 mmol/L (3.5-5.1); SODIUM 134 mmol/L (136-145)
== END | disposition home or self-care (01) ==
LOC: C.LAB1850 11:28
PROVIDERS: ATTEND Internal Medicine Nephrology
DX: N18.3 Chronic kidney disease, stage 3 (moderate) (principal); D64.9 Anemia, unspecified; N20.0 Calculus of kidney; E55.9 Vitamin D deficiency, unspecified; R13.10 Dysphagia, unspecified

== ENCOUNTER → 2017-05-28 | Day surgery (SDC) | payer BC ==
[2017-05-19 11:04] VITALS: Ht 180.3 cm; Wt 93.2 kg
[~2017-05-28] VITALS: Ht 180.3 cm; Wt 93.2 kg
[~2017-05-28] MED LIST changes: +ATOR-24 PO; -CEPH500C2 PO; +CHOL2000 PO; +FENTANYL CITRATE INJ 50 MCG/1 ML 2 ML VIAL ONE; -GLGKIT SC; +IPRA0.03 NAE; +LIDOCAINE HCL 2% 2 ML VIAL (20MG/ML) ONE; -MULT-506 PO; -NITR0.4S UT; +NTRGSL/4 UT; +PROPOFOL IV EMULSION 10 MG/ML 20 ML VIAL IV ONE; +RANI150T85 PO; +SODIUM CHLORIDE 0.9% 500ML 500 ML IV ONE; -VTMD1000 PO; -ZNTT/150 PO
[2017-05-28 13:51] VITALS: TEMP 36.7
--- NOTE | 2017-05-28 13:52 | Endo History and Physical ---
History & Physical Date of Service: May 28, 2017. Chief Complaint: DYSPHAGIA Referring Physician: DR Bahman GODFREY History of Present Illness 77 yo CM who presents for EGD secondary to dysphagia. Past Medical History Diabetes, Angioplasty/Stent, Male Genitourinary Prob., Anxiety, Reflux, Cancer, High Cholesterol, Sleep Apnea, CVA/TIA, Depression Past Surgical History Hx Cardiac Surgery: Yes (HEART CATH X 2 (1 STENT PLACED)) Hx Internal Defibrillator: No Hx Pacemaker: No Hx Abdominal Surgery: No Hx of Implantable Prosthesis: No Hx Post-Op Nausea and Vomiting: No Hx Cancer Surgery: No Hx Thoracic Surgery: No Hx Orthopedic: No Hx Urinary Tract Surgery: No Family History None Social History Smoking Status: Never Smoker Hx Substance Use: No Hx Alcohol Use: Yes (RARELY) Allergies Coded Allergies: Horse Serum Proteins (Verified Allergy, Unknown, HAPPENED A CHILD, 05/28) Metoprolol (Verified Adverse Reaction, Intermediate, SEVERE HEADACHE, 05/28) Current Medications Reported Home Medications Medications Dose Route/Sig Max Daily Dose Days Date Category Wellbutrin-Xl (Bupropion HCl) 300 Mg Tabcr 300 Mg PO DAILY 05/19/17 Reported Vitamin D3 (Cholecalciferol) 2,000 Unit Cap 1 Cap PO DAILY 05/19/17 Reported Vitamin C (Ascorbic Acid) 1,000 Mg Tab 1 Tab PO DAILY 05/19/17 Reported Zoloft (Sertraline HCl) 100 Mg Tab 200 Mg PO DAILY 05/19/17 Reported Rapaflo (Silodosin) 4 Mg Cap 1 Cap PO DAILY 05/19/17 Reported Nitrostat (Nitroglycerin) 0.4 Mg Tab 0.4 Mg UT PRN 05/19/17 Reported Ipratropium [place] (Ipratropium [place] (Nasal)) 0.03 % Spr 1 [place] SALTY DIRECTED PRN 05/19/17 Reported Nexium (Esomeprazole Magnesium) 40 Mg Capcr 40 Mg PO DAILY 05/19/17 Reported Lipitor (Atorvastatin Calcium) 40 Mg Tab 40 Mg PO DAILY 05/19/17 Reported Aspirin Ec (Aspirin) 81 Mg Tab 81 Mg PO DAILY 02/05/17 Reported Kp Ferrous Sulfate (Ferrous Sulfate) 325 Mg Tab 1 Tab PO DAILY 02/05/17 Reported Zantac (Ranitidine HCl) 150 Mg Tab 150 Mg PO BID 02/05/17 Reported Ambien (Zolpidem Tartrate) 5 Mg Tab 5 Mg PO HS PRN 02/05/17 Reported Ambien Cr (Zolpidem Tartrate) 6.25 Mg Tab 6.25 Mg PO HS 02/05/17 Reported Florinef (Fludrocortisone Acetate) 0.1 Mg Tab 0.2 Mg PO QAM 02/02/15 Reported Proscar (Finasteride) 5 Mg Tab 5 Mg PO DAILY 02/02/15 Reported Neurontin (Gabapentin) 300 Mg Cap 300 Mg PO BID 02/02/15 Reported Plavix (Clopidogrel Bisulfate) 75 Mg Tab 75 Mg PO DAILY 06/18/13 Reported novoLOG INSULIN PUMP (Insulin Aspart) 1 Ea Inj 1 Ea N/A UD 05/15/13 Reported Vital Signs Weight (Kilograms): 93.18 Height (Feet): 5 Height (Inches): 11 Physical Exam General Appearance: WD/WN, no apparent distress Respiratory/Chest: Auscultation: breath sounds normal Cardiovascular: Heart Auscultation: RRR Abdomen: Bowel Sounds: normal Inspection & Palpation: soft, non-distended, no tenderness, guarding & rebound Assessment and Plan Assessment: 77 yo CM who presents for EGD secondary to dysphagia. Plan: Proceed with colonoscopy.
--- NOTE | 2017-05-28 14:23 | GI REPORT ---
Procedure Date: 05/28/2017 1:43 PM Procedure: Upper GI endoscopy Indications: Dysphagia Medicines: Monitored Anesthesia Care Complications: No immediate complications. Estimated Blood Loss: Estimated blood loss: none. Procedure: Pre-Anesthesia Assessment: - Prior to the procedure, a History and Physical was performed, and patient medications and allergies were reviewed. The patient's tolerance of previous anesthesia was also reviewed. The risks and benefits of the procedure and the sedation options and risks were discussed with the patient. All questions were answered, and informed consent was obtained. Prior Anticoagulants: The patient last took aspirin 1 day and Plavix (clopidogrel) 4 days prior to the procedure. ASA Grade Assessment: III - A patient with severe systemic disease. After reviewing the risks and benefits, the patient was deemed in satisfactory condition to undergo the procedure. After obtaining informed consent, the endoscope was passed under direct vision. Throughout the procedure, the patient's blood pressure, pulse, and oxygen saturations were monitored continuously. The scope was introduced through the mouth, and advanced to the second part of duodenum. The upper GI endoscopy was accomplished without difficulty. The patient tolerated the procedure well. Findings: A mild Schatzki ring (acquired) was found at the gastroesophageal junction. A TTS dilator was passed through the scope. Dilation with an 18-19-20 mm balloon dilator was performed to 20 mm. The dilation site was examined and showed no change. A small hiatal hernia was present. The examined duodenum was normal. Impression: - Mild Schatzki ring. Dilated. - Small hiatal hernia. - Normal examined duodenum. - No specimens collected. Recommendation: - Resume previous diet. - Continue present medications. - Return to primary care physician as previously scheduled. Dylan Jordan, 05/28/2017 2:23:05 PM This report has been signed electronically. Note Initiated On: 05/28/2017 1:43 PM I attest to the content of the Intraoperative Record and orders documented therein, exceptions below
--- NOTE | 2017-05-28 14:49 | Anesthesiology Progress Note ---
Anesthesia Post Op Note Date & Time May 28, 2017 at 14:49 Vital Signs Pain Intensity: 0 Vital Signs Past 12 Hours Date Time Temp Pulse Resp B/P (MAP) Pulse Ox O2 Delivery O2 Flow Rate FiO2 05/28/17 14:34 72 20 104/57 (73) 94 Room Air 05/28/17 13:51 36.7 77 20 146/58 (87) 94 Room Air Notes Mental Status: alert / awake / arousable, participated in evaluation Pt Amnestic to Procedure: Yes Nausea / Vomiting: adequately controlled Pain: adequately controlled Airway Patency, RR, SpO2: stable & adequate BP & HR: stable & adequate Hydration State: stable & adequate Anesthetic Complications: no major complications apparent
--- NOTE | 2017-05-28 14:57 | Discharge Instructions ---
Endoscopy Patient Instructions Date / Procedure(s) Performed May 28, 2017. EGD Allergy Information Coded Allergies: Horse Serum Proteins (Verified Allergy, Unknown, HAPPENED A CHILD, 05/28) Metoprolol (Verified Adverse Reaction, Intermediate, SEVERE HEADACHE, 05/28) Discharge Date / Findings May 28, 2017. Schatzki's Ring s/p dilation Hiatal hernia Medication Instructions Stopped Medication(s): PLAVIX OK to resume all medications today as prescribed Reported Home Medications Medications Dose Route/Sig Max Daily Dose Days Date Category Wellbutrin-Xl (Bupropion HCl) 300 Mg Tabcr 300 Mg PO DAILY 05/19/17 Reported Vitamin D3 (Cholecalciferol) 2,000 Unit Cap 1 Cap PO DAILY 05/19/17 Reported Vitamin C (Ascorbic Acid) 1,000 Mg Tab 1 Tab PO DAILY 05/19/17 Reported Zoloft (Sertraline HCl) 100 Mg Tab 200 Mg PO DAILY 05/19/17 Reported Rapaflo (Silodosin) 4 Mg Cap 1 Cap PO DAILY 05/19/17 Reported Nitrostat (Nitroglycerin) 0.4 Mg Tab 0.4 Mg UT PRN 05/19/17 Reported Ipratropium [place] (Ipratropium [place] (Nasal)) 0.03 % Spr 1 [place] SALTY DIRECTED PRN 05/19/17 Reported Nexium (Esomeprazole Magnesium) 40 Mg Capcr 40 Mg PO DAILY 05/19/17 Reported Lipitor (Atorvastatin Calcium) 40 Mg Tab 40 Mg PO DAILY 05/19/17 Reported Aspirin Ec (Aspirin) 81 Mg Tab 81 Mg PO DAILY 02/05/17 Reported Kp Ferrous Sulfate (Ferrous Sulfate) 325 Mg Tab 1 Tab PO DAILY 02/05/17 Reported Zantac (Ranitidine HCl) 150 Mg Tab 150 Mg PO BID 02/05/17 Reported Ambien (Zolpidem Tartrate) 5 Mg Tab 5 Mg PO HS PRN 02/05/17 Reported Ambien Cr (Zolpidem Tartrate) 6.25 Mg Tab 6.25 Mg PO HS 02/05/17 Reported Florinef (Fludrocortisone Acetate) 0.1 Mg Tab 0.2 Mg PO QAM 02/02/15 Reported Proscar (Finasteride) 5 Mg Tab 5 Mg PO DAILY 02/02/15 Reported Neurontin (Gabapentin) 300 Mg Cap 300 Mg PO BID 02/02/15 Reported Plavix (Clopidogrel Bisulfate) 75 Mg Tab 75 Mg PO DAILY 06/18/13 Reported novoLOG INSULIN PUMP (Insulin Aspart) 1 Ea Inj 1 Ea N/A UD 05/15/13 Reported Provider Instructions Activity Restrictions - No exercising or heavy lifting for 24 hours. - Do not drink alcohol the day of the procedure. - Do not drive a car or operate machinery until the day after the procedure. - Do not make any important decisions or sign important papers in 24 hours after the procedure. Following Day: - Return to full activity which may include returning to work/school. Diet Start your diet with liquids and light foods (jello, soup, juice, toast). Then eat your usual diet if not nauseated. Treatment For Common After Affects For mild abdominal pain, bloating, or excessive gas: - Rest - Eat lightly - Lie on right side Follow-Up Information Follow-up with DR Bahman GODFREY as scheduled Anesthesia Information What You Should Know You have had a procedure that required some medicine to reduce anxiety and discomfort. This treatment is called moderate sedation. After receiving the treatment, you may be sleepy, but you will be able to breathe on your own. The effects of the treatment may last for several hours. Follow these instructions along with Activity/Diet recommendations noted above: * Do NOT do anything where dizziness or clumsiness would be dangerous. * Rest quietly at home today, then you can be up and about tomorrow. * Have a responsible person stay with you the rest of today. * You may have had an I.V. today. If so, you may take the dressing off later today. Recommendations Call your doctor if: * Trouble breathing * Continuous vomiting for more than 24 hours * Temperature above 101 degrees * Severe abdominal pain or bloating * Pain not relieved by pain medicine ordered * There is increased drainage or redness from any incision * A large amount of rectal bleeding greater than 2-3 tablespoons. (If you had a polyp/s removed or have hemorrhoids, a small amount of blood - from the rectum is to be expected.) * You have any unanswered questions or concerns. IN THE EVENT OF A SERIOUS EMERGENCY, GO TO THE NEAREST EMERGENCY ROOM Your discharge instructions were prepared by provider Dylan Jordan. Patient Instructions Signature Page Dileep Campbell Patient (or Guardian) Signature/Date: I have read and understand the instructions given to me by my caregivers. Caregiver/RN/Doctor Signature/Date: The above-named patient and/or guardian has received patient instructions on this date. + Original Patient Signature Page (only) stays with chart. Please make copy for patient.
[2017-05-28 15:05] VITALS: BP 143/77; PULSE 63; O2SAT 95
== END | disposition home or self-care (01) ==
LOC: C.GI 13:20
PROVIDERS: ATTEND Internal Medicine
DX: K22.2 Esophageal obstruction (principal); K44.9 Diaphragmatic hernia without obstruction or gangrene; R13.10 Dysphagia, unspecified; I12.9 Hypertensive chronic kidney disease with stage 1 through stage 4 chronic kidney disease, or unspecified chronic kidney disease; N18.3 Chronic kidney disease, stage 3 (moderate); G47.33 Obstructive sleep apnea (adult) (pediatric); I25.10 Atherosclerotic heart disease of native coronary artery without angina pectoris; E11.9 Type 2 diabetes mellitus without complications; Z79.82 Long term (current) use of aspirin; Z98.61 Coronary angioplasty status

== ENCOUNTER → 2017-06-04 | Outpatient (CLI) | payer BC ==
[~2017-06-04] MED LIST changes: -FENTANYL CITRATE INJ 50 MCG/1 ML 2 ML VIAL ONE; -LIDOCAINE HCL 2% 2 ML VIAL (20MG/ML) ONE; -PROPOFOL IV EMULSION 10 MG/ML 20 ML VIAL IV ONE; -SODIUM CHLORIDE 0.9% 500ML 500 ML IV ONE
--- NOTE | 2017-06-04 15:59 | DIAGNOSTIC IMAGING REPORT ---
NECK MRA HISTORY: Occlusion/STENOSIS OF BILATERAL CAROTID ARTERIES TECHNIQUE: [id number] MRA of the neck was performed without intravenous contrast. All measurements were calculated based on NASCET criteria. COMPARISON STUDY: Neck CTA 06/20/2015. FINDINGS: The aortic arch and proximal great vessels are widely patent. There is no significant stenosis, occlusion, or dissection identified within the bilateral common carotid or vertebral arteries. There is again noted extensive atherosclerotic plaque within the bilateral carotid bulbs. This results in 80-90% stenosis within the proximal bilateral internal carotid arteries. This involves the proximal 1.3 cm on the right and the proximal 1.5 cm on the left. This appears to have slightly progressed compared to the prior neck CTA. Redemonstration of the patient's known Zenker's diverticulum. IMPRESSION: Approximately 80-90% stenosis within the proximal bilateral internal carotid arteries. This appears to have slightly progressed compared to the prior neck CTA. Electronically signed by: Joe Lee M.D. 06/04/2017 3:58 PM Dictated Date/Time: 06/04/2017 3:50 PM
== END | disposition home or self-care (01) ==
LOC: C.MRI 15:02
PROVIDERS: ATTEND Physician Assistant
DX: I65.23 Occlusion and stenosis of bilateral carotid arteries (principal)

== ENCOUNTER 2017-06-19 12:47 | Emergency (ER) | payer BC ==
[~2017-06-19] VITALS: Ht 180.3 cm; Wt 93.0 kg
[2017-06-19 13:04] VITALS: Ht 180.3 cm; Wt 93.0 kg
[2017-06-19] MEDS ORDERED: OXYMETAZOLINE HCL 0.05% NA SPR 15 ML BTL ONE (13:25)
--- NOTE | 2017-06-19 14:10 | EMERGENCY ROOM VISIT NOTE ---
History Report prepared by Raymundo: Cedric Batres Under the Supervision of: Dr. Abel Hernández M.D. First contact with patient: 13:55 Chief Complaint: NOSE BLEED (MINOR) Stated Complaint: NOSE BLEED THAT WONT STOP History of Present Illness The patient is a 77 year old male who presents to the Emergency Room with complaints of a persistent nose bleed on the left side starting around 0600 this morning when he woke up. The patient states that the blood was going into his throat after he got up out of bed. He denies any recent fever, burning with urination, diarrhea, chest pain, and shortness of breath. The patient states that he has a cough, though this is chronic for him. He notes he is currently on Plavix for a heart stent, and he is not on any other blood thinners. The patient states that he has a history of nose bleeds in the past, and he has a history of diabetes. Source of History: patient Onset: 0600 this morning Position: nose Quality: other (bleed) Timing: other (persistent) Associated Symptoms: No fevers, No chest pain, No SOB, No diarrhea Review of Systems See HPI for pertinent positives and negatives. A total of ten systems were reviewed and were otherwise negative. Past Medical & Surgical Medical Problems: (1) Depression (2) Diab Edilia Wo Compl, Type Ii Or Unspec Type, Not Uncntrld (3) Esophageal Reflux (4) Generalized weakness (5) GERD (gastroesophageal reflux disease) (6) Heart disease (7) Hyperlipemia (8) Hyperlipidemia (9) Hypertension Nos (10) Insomnia (11) Lens Replacement Nec (12) Neuropathy (13) Transient ischemic attack (TIA) Surgical Problems: (1) History of heart artery stent Family History Diabetes mellitus Social History Smoking Status: Never Smoker Drug Use: none Marital Status: Housing Status: lives with family Occupation Status: retired Current/Historical Medications Scheduled Ascorbic Acid (Vitamin C), 1 TAB PO DAILY Aspirin (Aspirin Ec), 81 MG PO DAILY Atorvastatin (Lipitor), 40 MG PO DAILY Bupropion (Wellbutrin-Xl), 400 MG PO DAILY Cholecalciferol (Vitamin D3), 1 CAP PO DAILY Clopidogrel (Plavix), 75 MG PO DAILY Esomeprazole Magnesium (Nexium), 40 MG PO DAILY Ferrous Sulfate (Kp Ferrous Sulfate), 1 TAB PO DAILY Finasteride (Proscar), 5 MG PO DAILY Fludrocortisone Acetate (Florinef), 0.2 MG PO QAM Gabapentin (Neurontin), 300 MG PO BID Insulin Aspart (novoLOG INSULIN PUMP ), 1 EA N/A UD Multivitamin (Multivitamin), 1 TAB PO DAILY Nitroglycerin (Nitrostat), 0.4 MG UT PRN Ranitidine (Zantac), 150 MG PO BID Sertraline (Zoloft), 200 MG PO DAILY Silodosin (Rapaflo), 1 CAP PO DAILY Zolpidem Tartrate (Ambien Cr), 6.25 MG PO HS Scheduled PRN Ipratropium [place] (Nasal) (Ipratropium [place]), 1 SPRAY SALTY DIRECTED PRN for PRN Zolpidem Tartrate (Ambien), 5 MG PO HS PRN for Sleep Allergies Coded Allergies: Horse Serum Proteins (Verified Allergy, Unknown, HAPPENED A CHILD, 06/19) Metoprolol (Verified Adverse Reaction, Intermediate, SEVERE HEADACHE, 06/19) Physical Exam Vital Signs Date Time Temp Pulse Resp B/P (MAP) Pulse Ox O2 Delivery O2 Flow Rate FiO2 06/19/17 17:04 37.0 73 18 139/68 98 Room Air 06/19/17 15:15 73 18 147/57 93 Room Air 06/19/17 14:38 37.1 06/19/17 13:04 38.2 95 16 118/57 91 Room Air Physical Exam GENERAL: Awake, alert, fatigued-appearing, in no distress HENT: Normocephalic, atraumatic. Dry mucous membranes. Dried blood in bilateral nares when clears no source identified. No active bleeding. Posterior oropharynx has dried blood. No active bleeding. EYES: Normal conjunctiva. Sclera non-icteric. NECK: Supple. No nuchal rigidity. FROM. No JVD. RESPIRATORY: Diminished breath sounds at bases otherwise clear. CARDIAC: Regular rate, normal rhythm. Extremities warm and well perfused. Pulses equal. ABDOMEN: Soft, non-distended. No tenderness to palpation. No rebound or guarding. No masses. RECTAL: Deferred. MUSCULOSKELETAL: Chest examination reveals no tenderness. The back is symmetrical on inspection without obvious abnormality. There is no CVA tenderness to palpation. No joint edema. LOWER EXTREMITIES: Calves are equal size bilaterally and non-tender. No edema. No discoloration. NEURO: Normal sensorium. No sensory or motor deficits noted. SKIN: No rash or jaundice noted. Medical Decision & Procedures ER Provider Diagnostic Interpretation: Radiology results as stated below per my review and radiologist interpretation: CHEST ONE VIEW PORTABLE CLINICAL HISTORY: ABDOMINAL PAIN/GI pain. Nausea. COMPARISON STUDY: 12/11/2016 FINDINGS: Mild cardiac megaly. Slight increase in bronchovascular prominence throughout both lungs. Diaphragms are smooth. Costophrenic angles are sharp. IMPRESSION: Mild cardia megaly. Pulmonary venous congestion. The above report was generated using voice recognition software. It may contain grammatical, syntax or spelling errors. Electronically signed by: Wolf Pereria M.D. 06/19/2017 2:16 PM Dictated Date/Time: 06/19/2017 2:15 PM Laboratory Results 06/19/17 14:39 Red Blood Count 3.78, Mean Corpuscular Volume 93.9, Mean Corpuscular Hemoglobin 32.0, Mean Corpuscular Hemoglobin Concent 34.1, Mean Platelet Volume 10.6, Neutrophils (%) (Auto) 91.0, Lymphocytes (%) (Auto) 3.7, Monocytes (%) (Auto) 4.7, Eosinophils (%) (Auto) 0.1, Basophils (%) (Auto) 0.1, Neutrophils # (Auto) 28.35, Lymphocytes # (Auto) 1.16, Monocytes # (Auto) 1.48, Eosinophils # (Auto) 0.03, Basophils # (Auto) 0.04 06/19/17 14:39 Test 06/19/17 14:39 06/19/17 15:15 06/19/17 16:15 White Blood Count 31.19 K/uL (4.8-10.8) Red Blood Count 3.78 M/uL (4.7-6.1) Hemoglobin 12.1 g/dL (14.0-18.0) Hematocrit 35.5 % (42-52) Mean Corpuscular Volume 93.9 fL (80-100) Mean Corpuscular Hemoglobin 32.0 pg (25-34) Mean Corpuscular Hemoglobin Concent 34.1 g/dl (32-36) Platelet Count 225 K/uL (130-400) Mean Platelet Volume 10.6 fL (7.4-10.4) Neutrophils (%) (Auto) 91.0 % Lymphocytes (%) (Auto) 3.7 % Monocytes (%) (Auto) 4.7 % Eosinophils (%) (Auto) 0.1 % Basophils (%) (Auto) 0.1 % Neutrophils # (Auto) 28.35 K/uL (1.4-6.5) Lymphocytes # (Auto) 1.16 K/uL (1.2-3.4) Monocytes # (Auto) 1.48 K/uL (0.11-0.59) Eosinophils # (Auto) 0.03 K/uL (0-0.5) Basophils # (Auto) 0.04 K/uL (0-0.2) RDW Standard Deviation 44.5 fL (36.4-46.3) RDW Coefficient of Variation 13.0 % (11.5-14.5) Immature Granulocyte % (Auto) 0.4 % Immature Granulocyte # (Auto) 0.13 K/uL (0.00-0.02) Prothrombin Time 11.2 SECONDS (9.0-12.0) Prothromb Time International Ratio 1.1 (0.9-1.1) Anion Gap 3.0 mmol/L (3-11) Est Creatinine Clear Calc Drug Dose 46.1 ml/min Estimated GFR () 49.4 Estimated GFR (Non- 42.6 BUN/Creatinine Ratio 18.0 (10-20) Calcium Level 8.7 mg/dl (8.5-10.1) Total Bilirubin 0.6 mg/dl (0.2-1) Direct Bilirubin 0.1 mg/dl (0-0.2) Aspartate Amino Transf (AST/SGOT) 17 U/L (15-37) Alanine Aminotransferase (ALT/SGPT) 27 U/L (12-78) Alkaline Phosphatase 93 U/L (45-117) Troponin I < 0.015 ng/ml (0-0.045) Pro-B-Type Natriuretic Peptide 1312 pg/ml (0-1800) Total Protein 7.1 gm/dl (6.4-8.2) Albumin 3.2 gm/dl (3.4-5.0) Lipase 61 U/L (73-393) Influenza Type A (RT-PCR) Neg for Influ A (NEG) Influenza Type B (RT-PCR) Neg for Influ B (NEG) Urine Color YELLOW Urine Appearance CLEAR (CLEAR) Urine pH 7.5 (4.5-7.5) Urine Specific [place] 1.023 (1.000-1.030) Urine Protein NEG (NEG) Urine Glucose (UA) 1+ (NEG) Urine Ketones NEG (NEG) Urine Occult Blood NEG (NEG) Urine Nitrite NEG (NEG) Urine Bilirubin NEG (NEG) Urine Urobilinogen NEG (NEG) Urine Leukocyte Esterase NEG (NEG) Laboratory results reviewed by me Medications Administered Medications (Trade) Dose Ordered Sig/Henrry Route Start Time Stop Time Status Last Admin Dose Admin Oxymetazoline HCl (Afrin 0.05% Nasal Placida) 75 sprays STK-MED ONCE .ROUTE 06/19/17 13:25 06/19/17 13:26 DC 06/19/17 13:25 75 SPRAYS ECG Per My Interpretation Indication: other (epistaxis) Rate (beats per minute): 78 Rhythm: normal sinus Findings: no acute ischemic change, other (normal axis) ED Course 1355: The patient was evaluated in room B10. A complete history and physical exam was performed. 1704: I reevaluated the patient. Discussed results and discharge instructions: he verbalized understanding and agreement. The patient is ready for discharge. Medical Decision I reviewed the patient's past medical history, medications, and the nursing notes as described above. Differential diagnosis: Etiologies such as anterior epistaxis, coagulopathy, traumatic injury, fracture , septal hematoma, posterior epistaxis as well as other pathologies were entertained. The patient is a 77 y/o gentleman with a pmhx of CAD s/p stent on Plavix who presents to the emergency department with epistaxis per HPI. On arrival the patient is fatigued appearing but in NAD, Febrile to 38.2 and otherwise VSS. On exam, patient has dried blood in b/l naris. When cleared no evidence of source. Boggy turbinates c/w sinus infection. Creatinine 1.5 at baseline. UA negative. Flu negative. WBC 31. Infectious source likely related to URI. However, leukocytosis significant. Patient otherwise improved and well-appearing after observation. Patient requesting discharge. Given well-appearing, reasonable for prompt outpatient f/u to reassess and trend patient's WBC. Findings and plan for follow-up reviewed with patient. Patient agreeable and d/c'd per discharge instructions. Medication Reconcilliation Current Medication List: was personally reviewed by me Blood Pressure Screening Patient's blood pressure: Elevated blood pressure Blood pressure disposition: Referred to PCP Impression Primary Impression: Epistaxis Additional Impressions: Upper respiratory infection Leukocytosis Scribe Attestation The scribe's documentation has been prepared under my direction and personally reviewed by me in its entirety. I confirm that the note above accurately reflects all work, treatment, procedures, and medical decision making performed by me. Departure Information Dispostion Home / Self-Care Referrals Geoff Dorantes M.D. (PCP) Forms HOME CARE DOCUMENTATION FORM, IMPORTANT VISIT INFORMATION, WORK / SCHOOL INSTRUCTIONS Patient Instructions ED Nosebleed, ED Upper Resp Infec No Abx Tx, My [facility], White Cell Count Additional Instructions Please follow up with your primary care physician in the next 1-3 days for re- evaluation and to repeat your complete blood count to evaluate your white blood cells (WBC), which were elevated today at 31K. An elevated WBC like this can indicate infection but also malignancy. Your symptoms are most likely related to an upper respiratory infection causing dryness in your nasal passages. Otherwise, your exam, EKG, chest xray, and lab results did not show signs of an emergent condition at this time. Return to the emergency department for worsening symptoms as described in the accompanying instructions. Problem Qualifiers
--- NOTE | 2017-06-19 14:17 | DIAGNOSTIC IMAGING REPORT ---
CHEST ONE VIEW PORTABLE CLINICAL HISTORY: ABDOMINAL PAIN/GI pain. Nausea. COMPARISON STUDY: 12/11/2016 FINDINGS: Mild cardiac megaly. Slight increase in bronchovascular prominence throughout both lungs. Diaphragms are smooth. Costophrenic angles are sharp. IMPRESSION: Mild cardia megaly. Pulmonary venous congestion. The above report was generated using voice recognition software. It may contain grammatical, syntax or spelling errors. Electronically signed by: Wolf Pereira M.D. 06/19/2017 2:16 PM Dictated Date/Time: 06/19/2017 2:15 PM
[2017-06-19] MEDS ORDERED: MULT-506 PO (14:53)
[2017-06-19 15:42] LABS: INR 1.1 (0.9-1.1)
[2017-06-19 16:00] LABS: ALBUMIN 3.2 gm/dl (3.4-5.0); CALCIUM 8.7 mg/dl (8.5-10.1); CREATININE 1.54 mg/dl (0.60-1.40); POTASSIUM 4.4 mmol/L (3.5-5.1)
[2017-06-19 16:03] LABS: HEMATOCRIT 35.5 % (42-52); HEMOGLOBIN 12.1 g/dL (14.0-18.0); MEAN CELL VOLUME 93.9 fL (80-100); MEAN CORPUSCULAR HGB CONC 34.1 g/dl (32-36); MEAN PLATELET VOLUME 10.6 fL (7.4-10.4); PLATELET COUNT 225 K/uL (130-400); RED CELL DISTRIBUTION WIDTH SD 44.5 fL (36.4-46.3); TOTAL PROTEIN 7.1 gm/dl (6.4-8.2); WHITE BLOOD COUNT 31.19 K/uL (4.8-10.8)
[2017-06-19 16:04] LABS: BASO % 0.1 %; BASO ABS # 0.04 K/uL (0-0.2); EOS % 0.1 %; EOS ABS # 0.03 K/uL (0-0.5); IG# 0.13 K/uL (0.00-0.02); LYMPH % 3.7 %; LYMPH ABS # 1.16 K/uL (1.2-3.4); MONO % 4.7 %; MONO ABS # 1.48 K/uL (0.11-0.59); NEUT ABS # 28.35 K/uL (1.4-6.5)
[2017-06-19 16:07] LABS: INFLUENZA A PCR Neg for Influ A (NEG); INFLUENZA B PCR Neg for Influ B (NEG)
[2017-06-19 17:04] VITALS: BP 139/68; PULSE 73; TEMP 37; O2SAT 98
== END 2017-06-19 17:28 | disposition home or self-care (01) ==
LOC: C.EDB 12:48
DX: R04.0 Epistaxis (principal); J06.9 Acute upper respiratory infection, unspecified; D72.829 Elevated white blood cell count, unspecified; E11.9 Type 2 diabetes mellitus without complications; E78.5 Hyperlipidemia, unspecified; F41.8 Other specified anxiety disorders; I51.9 Heart disease, unspecified; Z95.5 Presence of coronary angioplasty implant and graft; Z79.899 Other long term (current) drug therapy; Z79.82 Long term (current) use of aspirin; Z79.4 Long term (current) use of insulin; Z88.8 Allergy status to other drugs, medicaments and biological substances; Z91.048 Other nonmedicinal substance allergy status

== ENCOUNTER → 2017-06-20 | Outpatient (CLI) | payer BC ==
[~2017-06-20] MED LIST changes: +MULT-506 PO
[2017-06-20 13:12] LABS: BASO % 0.2 %; BASO ABS # 0.04 K/uL (0-0.2); EOS % 0.6 %; EOS ABS # 0.14 K/uL (0-0.5); HEMATOCRIT 35.5 % (42-52); HEMOGLOBIN 11.8 g/dL (14.0-18.0); IG# 0.08 K/uL (0.00-0.02); LYMPH % 8.4 %; LYMPH ABS # 1.83 K/uL (1.2-3.4); MEAN CELL VOLUME 94.4 fL (80-100); MEAN CORPUSCULAR HEMOGLOBIN 31.4 pg (25-34); MEAN CORPUSCULAR HGB CONC 33.2 g/dl (32-36); MEAN PLATELET VOLUME 10.4 fL (7.4-10.4); MONO ABS # 1.31 K/uL (0.11-0.59); NEUT % 84.4 %; PLATELET COUNT 245 K/uL (130-400); RED CELL DISTRIBUTION WIDTH CV 13.4 % (11.5-14.5); RED CELL DISTRIBUTION WIDTH SD 46.3 fL (36.4-46.3)
== END | disposition home or self-care (01) ==
LOC: C.LABBC 11:14
PROVIDERS: ATTEND Family Medicine Adult Medicine
DX: D72.829 Elevated white blood cell count, unspecified (principal)

== ENCOUNTER → 2017-06-24 | Outpatient (CLI) | payer BC ==
--- NOTE | 2017-06-25 05:55 | PAP/PSG TECHNICIAN REPORT ---
[facility] Roentgenology Teacher Polysomnogram Report Study name: None Report date: 06/25/2017 Study date: 06/24/2017 Referring Physician: Titi Salazar MD Name: LIDIA HAYS Interpreting Physician: Frankie Bhat D.O. Date of : 1940 Roentgenology Teacher: Sakshi Zuñiga [facility]. Sex: Male Age: 77 StudyType: PSG PAP Weight: 204 lbs Height: 77 years, Height 5' 11" BMI: 28.45 Medications: Clopidrogel Bisulfate 75 mg, Finasteride 5 mg, Rapaflo 4 mg, Sertraline 100 mg, Wellbutrin, Gabapentin 300 mg, Atorvastatin 40 mg, Esomeprazole Magnesium 40 mg, Ranitidine 150 mg, Multivital, Nitrostat, Vitamin D3 2000 units, Fludrocortisone Acetate 0.1 mg, Ferrous Sulfate 325 mg, Ipratopium [place] 0.03%, Ambien 5 mg, Zolpidem ER 6.25 mg, Aspirin 81 mg, Vitamin C Patient History 77 yr. old male here for an updated titration sleep study. Patient stated he is on +10 CMH20 using a nasal mask. Patients [place] Sleepiness Scale Score is 7/24. Parameters Monitored NPSG: E1-M2, E2-M1, Fp1-M2, Fp2-M1, F3-M2, F4-M2, F4-M1, C3-M2, C4-M2, C4-M1, O1-M2, O2-M2, O2-M1, T3-M2, T4-M1, P3-M2, P4-M1, CHIN1, CHIN2, HR, EKG, Legs, PFLOW, SNOR, FLOW, CFLOW, Tidal Volume, THOR, ABDO, SpO2, PLTH, CPRESS, ETCO2 Wave, ETCO2, pH Sleep Architecture Sleep Stages Time at Lights Off 10:14:07 PM STAGES Time (min.) TST (%) Time at Lights On 5:28:07 AM Wake 67.5 -- Total Recording Time (TRT) 434.50 min. N1 25.0 7 Total Sleep Period (TSP) 407.0 min. N2 259.5 71 Total Sleep Time (TST) 366.5min. N3 59.0 16 Awake Time 68.0 min. REM 23.0 6 Wake after Sleep Onset 49.5 min. Sleep Efficiency (SE) 84 % Sleep Onset Latency (RIANNA) 18.0 min. Number of Stage 1 Shifts None Awakenings 26 Stage Changes 116 Number of REM periods 1 REM 23.0 6 REM Latency 274.0 min. NREM 343.5 94 Body Position Analysis Supine Right Left Side Prone Vertical Total Sleep Time (min.) 314.2 45.2 36.5 81.67 0.0 23.1 Total Sleep Time (%) 77% 12% 10% 22 0% 100% Total Sleep Time REM (min.) 23.0 0.0 0.0 None 0.0 0.0 Total Sleep Time NREM (min.) 257.8 45.2 36.5 None 0.0 4.0 Intermittent Wake (min.) 33.4 14.9 0.1 None 0.0 19.1 Total Sleep Period (%) 75% None None None None None Arousals Myoclonus (PLM) * Events Count Index Events Count Index Spontaneous 5 1 Events Awake (PLMW) 150 133.3 Respiratory 19 3.3 Events Asleep w/ Arousal (PLMA) 88 14.4 PLM 85 14 Events Asleep w/o Arousal (PLMS) 849 139.0 Snoring 6 1 Total Asleep 937 153.4 Total 115 19 Total 1,087 150 Respiratory Analysis * CA OA MA CH H RERA Total Count 45 11 0 0 199 0 255 Index 7.4 1.8 0.0 0 32.6 0 41.7 Mean Duration 18.5 20.2 0.0 0.00 20.8 0.0 20.3 Longest Duration 25.6 32.3 0.0 0.00 0.0 0.0 36.0 Respiratory Event Summary Total Supine ~Supine Right Left Prone REM NREM Apneas Count 56 24 32 0 32 N/A 0 56 Index 9.2 5 22 0.0 52.6 N/A 0 10 Hypopneas (4% Desat) Count 199 157 42 31 9 N/A 3 196 Index 32.6 33.5 29 41.2 14.8 N/A 7.8 34.2 Apneas & All Hypopneas Count 255 181 74 31 41 N/A 3 252 Index 41.7 39 52 41 67 N/A 7.8 44.0 Respiratory Events (Wood Mechanist+All Hyp+RERA) Count 255 181 74 31 41 N/A 3 252 Index 41.7 39 52 41.2 67.4 N/A 7.8 44.0 Respiratory Related Arousal Count 19 181 7 5 1 N/A 0 20 Index 3.3 3 5 7 2 N/A 0 3 Snoring Analysis Supine Right Left Prone REM NREM Total Snore duration 8.3 min Snores count 181 85 9 N/A 11 274 285 Snore mean duration 1.7 Sec Snores index 39 113 15 N/A 28.7 47.9 46.7 TST with snoring (%) 2.3% Desaturation Event Summary: Minimum %SpO2 Event Count Mean/Min/Max Duration(sec.) Desaturation Index % Time In Bed > 90 321 22.4 / 0.1 / 60.0 65.7 68.5 86 - 90 44 21.1 / 6.0 / 51.5 20.8 29.7 81 - 85 0 N/A 0.0 1.7 76 - 80 0 N/A 0.0 0.2 71 - 75 0 N/A 0.0 0.0 66 - 70 0 N/A 0.0 0.0 61 - 65 0 N/A 0.0 0.0 56 - 60 0 N/A 0.0 0.0 51 - 55 0 N/A 0.0 0.0 < 50 0 N/A 0.0 0.0 Total REM NREM Awake <50% 0.0 min. 0.0 min. 0.0 min. 0.0 min. 51 - 60% 0.0 min. 0.0 min. 0.0 min. 0.0 min. 61 - 70% 0.0 min. 0.0 min. 0.0 min. 0.0 min. 71 - 80% 0.8 min. 0.0 min. 0.4 min. 0.4 min. 81 - 90% 134.4 min. 12.6 min. 105.6 min. 16.2 min. 91 - 100% 293.3 min. 9.6 min. 235.1 min. 48.6 min. Average 92 90 92 92 Minimum SpO2 74 82 74 79 Desaturation Event Index 46.0 41.7 49.4 32.0 # Desat. Events below 89% 168 8 140 20 Time(%) with Saturation below 89% 11.6 1.3 8.6 1.7 Time(min.) with Saturation below 89% 49.6 5.5 36.7 7.4 Time (mins) REM (mins) NREM (mins) % of TST SpO2 Below 90% 246 12 N234 21.3 SpO2 Below 88% 54 0 0 6 Heart Rate Analysis Min (bpm) Max (bpm) Average (bpm) Awake 56 97 71 NREM 35 136 69 REM 39 79 73 Overall 35 136 69 Supplemental O2 Values Minimum O2 level: None Value Start Time End Time Roentgenology Teacher Comments Mr. Hays slept in the right, left, and supine positions. Cardiac arrhythmia and frequent PLMs (entire body would move) noted. No bruxism noted. CPAP was initiated at +4 CMH2O and up-titrated to a of +15 CMH2O Cflex 1. Patient was still having events and was switch to BIPAP because of high pressure. PAP initiated at an IPAP of +16 CMH2O and an EPAP of +12 CMH2O up-titrated to a level of: IPAP +72SSH8U, EPAP +15 CMH20 BiFlex with a rate 13 BPM, A ResMed mirage FX nasal mask was used during titration. Mr. Hays did not wake to use the restroom during the night. He did wake up at 3 am to check his blood glucose. The final report will be interpreted and signed by a sleep physician. The completed physician report will then be placed in the patient medical record. Therapy Event: Therapy (cm H20) 4 6 7 9 11 12 13 Total Time at Pressure (min.) 47.2 19.8 19.2 27.5 46.1 23.7 6.7 TST at Pressure (min.) 15.8 17.3 19.2 27.5 43.6 23.2 6.2 # Periods 1 1 1 1 1 1 1 Sleep Onset (min.) 17.9 0.0 0.0 0.0 0.0 0.0 0.0 REM Onset (min.) N/A N/A N/A N/A N/A N/A N/A Sleep Efficiency % 33 87 100 100 94 97 92 Wakefulness (%) 66.5 12.6 0.0 0.0 5.4 2.1 7.5 Wakefulness (min.) 31.4 2.5 0.0 0.0 2.5 0.5 0.5 NREM 1 (%) 18.0 12.6 0.0 0.0 2.2 2.1 22.5 NREM 1 (min.) 8.5 2.5 0.0 0.0 1.0 0.5 1.5 NREM 2 (%) 15.4 72.2 54.2 20.0 53.1 57.4 70.0 NREM 2 (min.) 7.3 14.3 10.4 5.5 24.5 13.6 4.7 NREM 3 (%) 0.0 2.5 45.8 80.0 39.3 38.3 0.0 NREM 3 (min.) 0.0 0.5 8.8 22.0 18.1 9.1 0.0 REM (%) 0.0 0.0 0.0 0.0 0.0 0.0 0.0 REM (min.) 0.0 0.0 0.0 0.0 0.0 0.0 0.0 # Arousals 7 8 3 2 22 11 4 Arousal Index 26.6 27.7 9.4 4.4 30.3 28.5 38.9 # Snore 30 52 16 15 34 21 4 Snore Index 114.1 180.3 50.0 32.7 46.8 54.3 38.9 AHI 22.8 48.5 56.3 41.4 41.3 56.9 38.9 AHI Supine N/A N/A 96.5 41.4 41.3 56.9 38.9 AHI Non-Supine 22.8 48.5 48.5 N/A N/A N/A N/A NREM AHI 22.8 48.5 56.3 41.4 41.3 56.9 38.9 REM AHI N/A N/A N/A N/A N/A N/A N/A RDI 22.8 48.5 56.3 41.4 41.3 56.9 38.9 # Obstructive 0 0 0 0 1 0 0 # Central Ap 0 0 0 0 1 1 0 # Mixed 0 0 0 0 0 0 0 # Hypopneas 6 14 18 19 28 21 4 RERAS 0 0 0 0 0 0 0 Total Respiratory Events 6 14 18 19 30 22 4 Time Below SpO2 89.00% (min.) 6.0 9.9 5.7 2.0 1.4 0.4 0.0 Mean NREM SpO2 (%) 89 88 89 90 91 93 93 Mean REM SpO2 (%) N/A N/A N/A N/A N/A N/A N/A Mean Sleep SpO2 (%) 89 88 89 90 91 93 93 Min NREM SpO2 (%) 86 77 74 87 83 87 86 Min REM SpO2 (%) N/A N/A N/A N/A N/A N/A N/A Position Supine (min.) 0.0 0.0 3.1 27.5 43.6 23.2 6.2 Position Non-supine (min.) 15.8 17.3 16.1 0.0 0.0 0.0 0.0 LM Index Sleep 228.1 225.3 200.1 54.5 88.1 77.6 174.8 LM Index NREM 228.1 225.3 200.1 54.5 88.1 77.6 174.8 LM Index REM N/A N/A N/A N/A N/A N/A N/A Mean Heart Rate (bpm) 71 74 73 73 70 69 69 Min Heart Rate (bpm) 64 67 67 66 63 63 35 Therapy (cm H20) 14 15 16/12 17/13 18/14 19/15 20/15 Total Time at Pressure (min.) 64.0 76.3 14.7 25.5 20.6 8.2 34.5 TST at Pressure (min.) 61.5 66.3 14.7 24.5 18.1 8.2 20.5 # Periods 1 1 1 1 1 1 1 Sleep Onset (min.) 0.0 0.0 0.0 0.0 0.0 0.0 0.0 REM Onset (min.) N/A 37.8 N/A N/A N/A N/A N/A Sleep Efficiency % 96 86 100 96 87 100 59 Wakefulness (%) 3.9 13.1 0.0 3.9 12.1 0.0 40.6 Wakefulness (min.) 2.5 10.0 0.0 1.0 2.5 0.0 14.0 NREM 1 (%) 2.3 5.9 0.0 3.9 4.9 0.0 8.7 NREM 1 (min.) 1.5 4.5 0.0 1.0 1.0 0.0 3.0 NREM 2 (%) 93.0 50.8 100.0 92.2 83.0 100.0 50.7 NREM 2 (min.) 59.5 38.8 14.7 23.5 17.1 8.2 17.5 NREM 3 (%) 0.8 0.0 0.0 0.0 0.0 0.0 0.0 NREM 3 (min.) 0.5 0.0 0.0 0.0 0.0 0.0 0.0 REM (%) 0.0 30.2 0.0 0.0 0.0 0.0 0.0 REM (min.) 0.0 23.0 0.0 0.0 0.0 0.0 0.0 # Arousals 24 12 2 8 4 2 6 Arousal Index 23.4 10.9 8.2 19.6 13.3 14.6 17.6 # Snore 24 19 4 37 16 8 5 Snore Index 23.4 17.2 16.3 90.7 53.0 58.4 14.6 AHI 17.6 29.0 77.6 76.0 66.3 73.0 35.1 AHI Supine 17.6 22.1 N/A 76.0 66.3 73.0 35.1 AHI Non-Supine N/A 53.1 77.6 75.9 N/A N/A N/A NREM AHI 17.6 40.2 77.6 76.0 66.3 73.0 35.1 REM AHI N/A 7.8 N/A N/A N/A N/A N/A RDI 17.6 29.0 77.6 76.0 66.3 73.0 35.1 # Obstructive 0 1 0 7 2 0 0 # Central Ap 1 5 18 16 3 0 0 # Mixed 0 0 0 0 0 0 0 # Hypopneas 17 26 1 8 15 10 12 RERAS 0 0 0 0 0 0 0 Total Respiratory Events 18 32 19 31 20 10 12 Time Below SpO2 89.00% (min.) 0.1 7.7 3.0 4.4 1.4 0.1 0.0 Mean NREM SpO2 (%) 93 93 91 92 93 93 94 Mean REM SpO2 (%) N/A 90 N/A N/A N/A N/A N/A Mean Sleep SpO2 (%) 93 92 91 92 93 93 94 Min NREM SpO2 (%) 88 86 87 86 87 87 89 Min REM SpO2 (%) N/A 82 N/A N/A N/A N/A N/A Position Supine (min.) 61.5 51.6 0.0 17.4 18.1 8.2 20.5 Position Non-supine (min.) 0.0 14.7 14.7 7.1 0.0 0.0 0.0 LM Index Sleep 181.6 103.2 36.8 257.3 268.4 262.8 234.2 LM Index NREM 181.6 92.9 36.8 257.3 268.4 262.8 234.2 LM Index REM N/A 122.6 N/A N/A N/A N/A N/A Mean Heart Rate (bpm) 69 70 66 66 66 64 65 Min Heart Rate (bpm) 44 39 60 57 58 56 58
--- NOTE | 2017-06-28 12:29 | POLYSOMNOGRAPH REPORT ---
CLINICAL DATA: The patient is a 77-year-old male diagnosed many years ago with obstructive sleep apnea. He has been on nasal CPAP at 10 cm. Reportedly, the patient had self-titrated down his CPAP machine to 10 cm. He is referred for a CPAP retitration study. His BMI is 28.45. 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 The total sleep time was 366.5 minutes. The sleep efficiency was mildly reduced to 84%. The sleep latency was top normal at 18 minutes. Wake after sleep onset was mildly prolonged to 49.5 minutes. REM latency was prolonged to 274 minutes. There was only 1 REM period during the night. Sleep consisted of stage N1 7%, stage N2 71%, stage N3 16%, stage REM 6%. AROUSAL DATA: The patient had a total of 115 arousals including 5 spontaneous arousals, 19 respiratory arousals, 85 PLM arousals, and 6 snoring arousals. The arousal index was 19. PLM DATA: The patient had a total of 937 periodic limb movements of sleep for a PLM index severely elevated at 153.4. There were 88 arousals, associated with limb movements for a PLM arousal index of 14.4. EKG: The underlying cardiac rhythm was normal sinus. He had PACs and PVCs. There was one short burst of SVT lasting only 4 beats during epoch 353. The listed cardiac rates went from 35-79 beats per minute with an average of 73 beats per minute. It was unclear if the lower heart rates may have been artifact. RESPIRATORY DATA: The patient's respiratory events were treated first with CPAP and then with BiPAP. He had a total of 255 respiratory events including 45 central apneas, 11 obstructive apneas, and 199 hypopneas. Hypopneas were scored according to the 4% desaturation rule. The longest apnea was 32.3 seconds. The mean duration of the hypopneas was 20.8 seconds. The apnea hypopnea index is severely elevated at 41.7. OXIMETRY DATA: The average saturation for the night was 92%. The minimum saturation was 74%. This likely was artifactual. There was a total of 49.6 minutes with saturations less than 89%. 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 Cardiac arrhythmia and frequent PLMs were noted. His entire body would move. No bruxism noted. CPAP was initiated at 4 cm and up titrated to 15 cm with C-Flex 1. He was still having events, so was switched to BiPAP because of high pressure. BiPAP was started at iPAP 16 and EPAP of 12. This was up titrated to a final pressure of 20/15 with a backup rate of 13. A ResMed Mirage FX nasal mask was used during titration. The patient did not awaken to use the restroom. He did awaken at 3:00 a.m. to check his blood glucose. IMPRESSION: 1. Obstructive sleep apnea. 2. Complex sleep apnea. 3. Severe periodic limb movement disorder. COMMENTS: This patient had a poor titration. His respiratory events were not able to be resolved. At higher pressures, he developed central apneas. He was switched to BiPAP and the frequency of central apneas appears to have actually worsened. The history is that the patient had been decreasing his baseline CPAP on his own over a period of time. It is very difficult to make a recommendation at present about whether to use CPAP or BiPAP and what pressures to set. RECOMMENDATIONS: 1. Advise sleep consultation - this has already been arranged for 08/11/2017. 3. Further suggestions will be made when the sleep consultation is completed and upon hearing the patient's history. 4. Suggest checking a serum ferritin level if this has not been done. 5. If possible, the patient should avoid sleeping in the supine position. Most of this night was spent supine.
== END | disposition home or self-care (01) ==
LOC: C.NEUR 21:00
PROVIDERS: ATTEND Internal Medicine Critical Care Medicine
DX: G47.33 Obstructive sleep apnea (adult) (pediatric) (principal); R06.02 Shortness of breath

== ENCOUNTER → 2017-07-01 | Outpatient (CLI) | payer BC ==
[2017-07-01 12:07] LABS: BASO % 0.3 %; BASO ABS # 0.04 K/uL (0-0.2); EOS % 2.6 %; EOS ABS # 0.33 K/uL (0-0.5); HEMOGLOBIN 11.9 g/dL (14.0-18.0); IG# 0.05 K/uL (0.00-0.02); LYMPH % 11.8 %; LYMPH ABS # 1.51 K/uL (1.2-3.4); MEAN CELL VOLUME 95.9 fL (80-100); MEAN CORPUSCULAR HEMOGLOBIN 30.8 pg (25-34); MEAN CORPUSCULAR HGB CONC 32.2 g/dl (32-36); MONO % 7.4 %; MONO ABS # 0.95 K/uL (0.11-0.59); NEUT % 77.5 %; NEUT ABS # 9.96 K/uL (1.4-6.5); PLATELET COUNT 295 K/uL (130-400); RED CELL DISTRIBUTION WIDTH CV 13.7 % (11.5-14.5); RED CELL DISTRIBUTION WIDTH SD 47.7 fL (36.4-46.3); WHITE BLOOD COUNT 12.84 K/uL (4.8-10.8)
[2017-07-01 12:25] LABS: BLOOD UREA NITROGEN 17 mg/dl (7-18); CREATININE 1.54 mg/dl (0.60-1.40)
== END | disposition home or self-care (01) ==
LOC: C.LAB1850 09:45
PROVIDERS: ATTEND Family Medicine Adult Medicine
DX: D72.829 Elevated white blood cell count, unspecified (principal); J38.00 Paralysis of vocal cords and larynx, unspecified

== ENCOUNTER → 2017-07-03 | Outpatient (CLI) | payer BC ==
[~2017-07-03] MED LIST changes: +OPTIRAY 320 IV PRN
--- NOTE | 2017-07-03 16:05 | DIAGNOSTIC IMAGING REPORT ---
CT SCAN OF THE CHEST WITH IV CONTRAST CLINICAL HISTORY: Vocal cord weakness. Cough. COMPARISON STUDY: Chest x-ray dated 06/19/2017. Chest CT dated 09/15/2009. TECHNIQUE: Following the IV administration of 60 cc of Optiray 320, CT scan of the thorax was performed from the thoracic inlet to the upper abdomen. Images are reviewed in the axial, sagittal, and coronal planes. IV contrast was administered without complication. A dose lowering technique was utilized adhering to the principles of ALARA. The examination is degraded by motion artifact. FINDINGS: Thyroid: Imaged portions of the thyroid gland are normal in size and attenuation. Esophagus: There is marked inflammatory change identified on the cervical esophagus this extends into the superior mediastinum. A large esophageal diverticulum is seen at this site on 09/15/2009. Thoracic aorta: There is atherosclerotic calcification of the thoracic aorta, which is normal in caliber and demonstrates standard 3-vessel arch anatomy. No dissection is seen. Heart: The heart is enlarged and without pericardial effusion. The coronary arteries are densely calcified. The pulmonary trunk appears dilated measuring 3.1 cm in transverse diameter. This suggests pulmonary artery hypertension. Lungs and pleural spaces: Evaluation of the lung parenchyma is degraded by motion artifact. There is biapical scarring. Miliary pulmonary nodularity is identified. Patchy consolidative changes suggested in the right upper lobe. No pleural effusion is identified. Scattered calcified granulomas are observed. The trachea and central airways are patent. Mediastinum: There is a calcified subcarinal node. Mildly enlarged mediastinal nodes observed. A precarinal node on image #96 measures 13 mm in short axis. A high right peritracheal node on image #57 measures 9 mm in short axis. Marilu: There are calcified right hilar nodes. No hilar adenopathy is seen. Axillae: There is no axillary lymphadenopathy. Upper abdomen: There is a small hiatal hernia. The liver appears steatotic. Skeletal structures: The skeletal structures are osteopenic. Degenerative change and mild hyperkyphosis are noted in the thoracic spine. No lytic or blastic bony lesions are seen. IMPRESSION: 1. There is marked inflammatory stranding identified around the cervical esophagus which extends into the superior mediastinum. A large esophageal diverticulum was seen at this site on the 2009 examination, and this likely represents superimposed infection. Perforation would be impossible to exclude. Follow-up with endoscopy is recommended. 2. There is miliary pulmonary nodularity, which is new from the 2010 examination. This carries a broad differential, including metastatic disease, infectious processes such as mycobacterial infection or fungal disease, healed varicella pneumonia, hypersensitivity pneumonitis, sarcoidosis, or pneumoconiosis. Clinical correlation will be essential. 3. More patchy groundglass consolidation is suggested in the right upper lobe, possibly an infectious/inflammatory basis. 4. Marked cardiomegaly. 5. Mildly enlarged mediastinal lymph nodes are observed. 6. Findings suggest hepatic steatosis. Electronically signed by: Best Minaya M.D. 07/03/2017 4:04 PM Dictated Date/Time: 07/03/2017 3:55 PM
--- NOTE | 2017-07-03 16:18 | DIAGNOSTIC IMAGING REPORT ---
HEAD COMBO CLINICAL HISTORY: 77 years-old Male presenting with VOCAL CORD WEAKNESS. TECHNIQUE: Multidetector CT imaging of the head was performed before and after the administration of intravenous contrast. IV contrast: 60 mL of Optiray 320. A dose lowering technique was used consistent with the principles of ALARA (as low as reasonably achievable). COMPARISON: Contrast-enhanced brain MR from 05/27/[address] head from 05/26/2014. CT DOSE (mGy.cm): The estimated cumulative dose is 2432.38 mGy.cm. 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 Proportional ventricular and sulcal prominence, likely age-related parenchymal volume loss. Brain parenchyma normal in appearance with preserved buckley-white differentiation. No mass effect or midline shift. No hemorrhage or acute territorial infarct. No extra-axial fluid collection. Paranasal sinuses and mastoid air cells clear. Calvarium intact. No abnormal parenchymal enhancement. Intracranial vasculature grossly patent. IMPRESSION: 1. No acute intracranial pathology. No abnormal enhancement. Electronically signed by: Jaskaran Silva M.D. 07/03/2017 4:16 PM Dictated Date/Time: 07/03/2017 4:11 PM
--- NOTE | 2017-07-03 16:27 | DIAGNOSTIC IMAGING REPORT ---
ADDENDUM There is increased fluid and inflammatory change at the Zenker's diverticulum, which extends into the superior mediastinum. On prior CTA neck, trace amount of fluid was noted along the inferior portion though this did not extend into the superior mediastinum. This could suggest diverticulitis or perforation though no extraluminal gas is apparent. Consider direct visualization. The report will be called/faxed according to standard departmental protocol. Electronically signed by: Jaskaran Silva M.D. 07/03/2017 5:30 PM Dictated Date/Time: 07/03/2017 5:28 PM ORIGINAL REPORT SOFT TISSUE NECK WITH CLINICAL HISTORY: 77 years-old Male presenting with VOCAL CORD WEAKNESS. TECHNIQUE: Multidetector CT of the neck was performed after the administration of intravenous contrast. IV contrast: 60 mL of Optiray 320. A dose lowering technique was used consistent with the principles of ALARA (as low as reasonably achievable). COMPARISON: CTA of the neck from 06/20/2015. CT DOSE (mGy.cm): The estimated cumulative dose is 2432.[address] scans. 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 Redemonstration of the large outpouching along the posterior aspect of the cervical esophagus/hypopharynx suggesting Zenker diverticulum. This contains fluid and debris. The airway demonstrates no suspicious nodular enhancement. There is partial opacification of the left sphenoid sinus. No effacement of the fossae of Rosenmuller, valleculae, or piriform sinuses. The vocal folds are symmetric. Upper trachea normal. No lymphadenopathy. Atherosclerosis of aortic arch. Significant atherosclerosis of the carotid bulbs with approximately 90% stenosis of the bilateral proximal internal carotid arteries. Allowing for differences in technique, the appearance is similar to prior exam. The patient is edentulous. Temporomandibular joints intact. Mild degenerative changes of the cervical spine. Extensive reticular opacities and patchy groundglass opacities at the apices, which may be increased from prior. There is worsened bronchiectasis and patchy consolidation at the apices. IMPRESSION: 1. Symmetric vocal folds without evidence of a mass lesion along the airway. 2. Apparent interval increase in reticular and groundglass opacities at the and lung apices with interval increase in limited apical consolidation and bronchiectasis. Chronic infection including mycobacterial infection cannot be excluded. 3. Redemonstration of the center diverticulum. 4. Approximately 90% stenosis of the bilateral proximal internal carotid arteries. This is similar to prior CTA from 2016 allowing for differences in technique. The report will be called/faxed according to standard departmental protocol. Electronically signed by: Jaskaran Silva M.D. 07/03/2017 4:25 PM Dictated Date/Time: 07/03/2017 4:17 PM
== END | disposition home or self-care (01) ==
LOC: C.CTS 14:52
PROVIDERS: ATTEND Physician Assistant
DX: J38.00 Paralysis of vocal cords and larynx, unspecified (principal); R05 Cough